=== PATIENT | male | born 1955 | race Caucasian/White ===

== ENCOUNTER → 2020-11-13 10:55 | Outpatient (CLI) | payer MEDICARE, MEDICAID, SELFPAY ==
[2020-11-13 09:34] VITALS: BMI 18.0
--- NOTE | 2020-11-13 11:02 | MRI_ITS ---
STUDY: MRI BRAIN WITH AND WITHOUT CONTRAST REASON FOR EXAM: Male, 65 years old. Glioblastoma s/p resection, eval and planning RT TECHNIQUE: Standardized multiplanar fat and water weighted pulse sequences were obtained. IV DOTAREM 10ML was administered for the contrast portion of the examination. COMPARISON: 21 Oct 2020 FINDINGS: There is expected appearance of right temporal resection cavity and overlying craniotomy. Cavity is filled with CSF-like fluid and has minor thin reactive rim enhancement. There is 5 mm right hemispheric subdural effusions without mass effect. Previously seen vasogenic edema has resolved. Residual nonenhancing tumor involves the uncus, hippocampus and medial aspect of the temporal lobe. There is abnormal signal in the lower aspect of the right lentiform nucleus, without enhancement and possibly reactive and/or residual tumor. There is minor 3 mm right to left midline shift. There is no hydrocephalus or herniation. There is posttraumatic inseparable malacia in the left frontal, right frontal, left temporal and occipital lobes. MRI/Brain W/WO Contrast IMPRESSION: 1. Expected appearance of right temporal subtotal resection and surgical cavity. Electronically Signed: Marito Loving MD at 20:49 EDT Tel , Service support ,
[2020-11-13 12:05] LABS: CREATININE FINGERSTICK 1.1 mg/dL (0.70-1.30); EGFR FINGERSTICK > 60.0000 mL/min (>60)
== END ==
PROVIDERS: PCP Internal Medicine; Referring Provider Student in an Organized Health Care Education/Training Program; Visit Provider Student in an Organized Health Care Education/Training Program
DX: Z01.812 Encounter for preprocedural laboratory examination (principal); C71.2 Malignant neoplasm of temporal lobe
CPT/HCPCS: 36415; 70553; 80053; 85025; A9575

== ENCOUNTER → 2020-11-20 15:51 | Outpatient (CLI) | payer MEDICARE, MEDICAID, SELFPAY ==
[2020-11-20 15:02] VITALS: BMI 17.7
--- NOTE | 2020-11-20 15:54 | VDLE_ITS ---
Reason For Study: Pain RIGHT LEFT GSV is normal. CFV is compressible, spontaneous, phasic, CFV is compressible, spontaneous, phasic, competent, and demonstrates normal competent and demonstrates normal augmentation. augmentation. FV is compressible, spontaneous, phasic, competent and demonstrates normal augmentation. POP V is compressible, spontaneous, phasic, competent and demonstrates normal augmentation. T/P Trunk is compressible. PTV is compressible. RT PerV is compressible. Procedure This is a venous duplex using B-mode, color flow and spectral Doppler. Exam performed in department. A preliminary report was called and/or faxed to [facility]. VL/Venous Duplex US, Unilateral Interpretation Summary There is no evidence of right lower extremity deep vein thrombosis. Right great saphenous vein appears patent and compressible segmentally. Normal flow patterns left common f emoral vein Ordering Physician: Vi Bellamy Referring Physician: Jerod Roberson Performed By: Rosalina Sanchez RVT
--- NOTE | 2020-11-20 16:32 | MRI_ITS ---
STUDY: MRI ABDOMEN WITH AND WITHOUT CONTRAST REASON FOR EXAM: Male, 65 years old. EVALUATE PANCREAS HYPODENSITY SEEN ON CT FROM [facility] -- ATTN: PANCREAS TECHNIQUE: Standardized fat and water weighted pulse sequences were obtained in all 3 orthogonal planes post contrast administration. dotarem 10 ml iv was administered for the contrast portion of the examination. COMPARISON: CT 10/18/2020. FINDINGS: The visualized lung bases are unremarkable. The visualized portions of the heart are within normal limits. Normal liver. Normal gallbladder and extrahepatic biliary system. Normal spleen. 1.2 cm T1 hypointense/T2 hyperintense lesion in the head of the pancreas (image 39, series 1302). This lesion does not demonstrate enhancement nor does it drop signal on out of phase imaging. No dilatation of the main pancreatic duct. Normal bilateral adrenal glands. Normal right kidney. Normal left kidney. Normal visualized stomach. Normal small intestine. Normal colon. There is diffuse atherosclerotic calcification of the abdominal aorta, without a demonstrated aneurysm. Normal inferior vena cava. Normal retroperitoneum. Normal abdominal wall. Normal osseous structures. MRI/MRI Abd WITH and W/O Contrast IMPRESSION: 1.2 cm non-enhancing T2 hyperintense lesion in the head of the pancreas without main pancreatic ductal dilation. This is suspicious for a cystic neoplasm such as side branch intraductal papillary mucinous neoplasm (IPMN). Recommend follow-up MRCP in two years to document stability. Electronically Signed: Tony Valenzuela MD at 19:28 EDT Tel , Service support ,
== END ==
PROVIDERS: PCP Internal Medicine; Referring Provider Nurse Practitioner Family; Visit Provider Nurse Practitioner Family
DX: M79.604 Pain in right leg (principal); C71.2 Malignant neoplasm of temporal lobe
CPT/HCPCS: 74183; 77300; 77301; 77338; 93971; A9575; A4216

== ENCOUNTER 2020-12-01 13:53 | Emergency (ER) | payer MEDICARE, MEDICAID, SELFPAY ==
[2020-11-20 15:02] VITALS: BMI 17.7
--- NOTE | 2020-12-01 13:56 | RAD_ITS ---
EXAM: XR CHEST, 1 VIEW CLINICAL INDICATION: Neuro deficit, acute, stroke suspected TECHNIQUE: Frontal view of the chest. This report was created using [employer] report generation technology. COMPARISON: None. FINDINGS: LUNGS AND PLEURAL SPACES: Suspicious ill-defined interstitial infiltrates in the lower lobes. HRCT chest will be helpful if interstitial pneumonitis is a clinical consideration. No pneumothorax. No effusion. HEART: Unremarkable. Cardiac silhouette not enlarged. MEDIASTINUM: Central airways and mediastinal contour are unremarkable. BONES/JOINTS: Unremarkable. SOFT TISSUES: Unremarkable. TUBES, LINES AND DEVICES: ET tube tip is 4 cm above the maynor. OG tube tip and sidehole are inside the left gastric cardia. RAD/Chest 1 View IMPRESSION: Suspicious interstitial infiltrates in the lower lobes. HRCT chest will help clarify if interstitial pneumonitis is a clinical consideration. Electronically Signed: Sampson Avalos MD at 15:41 EDT , Service support ,
--- NOTE | 2020-12-01 13:56 | CT_ITS ---
We are attempting to reach an attending provider to discuss findings. An addendum with communication details will be sent when the communication is complete. EXAM: CT HEAD WITHOUT INTRAVENOUS CONTRAST CLINICAL INDICATION: Neuro deficit, acute, stroke suspected TECHNIQUE: Multiple axial images were obtained of the head without intravenous contrast. This CT exam was performed using one or more of the following dose reduction techniques: automated exposure control, adjustment of the mA and/or kV according to patient size, and/or use of iterative reconstruction technique. This report was created using [employer] report [employer] technology. COMPARISON: CT head without contrast 10/24/2020. FINDINGS: BRAIN AND EXTRA-AXIAL SPACES: Clearing of postoperative pneumocephalus and postoperative fluid overlying the right cerebral hemisphere. Large surgical defect in the right temporal lobe is unchanged. Cystic encephalomalacia with atrophy in the left anterior temporal pole, left frontal lobe and left posterior parieto-occipital lobe are unchanged. No intra- or extra-axial hemorrhage. No evidence of acute infarct. No intracranial mass or mass effect. There is preservation of the soliz/white matter interface. Posterior fossa structures are unremarkable. Basal cisterns are patent. BONES/JOINTS: Right craniotomy defect is unchanged. No discrete lytic or blastic abnormalities. SINUSES: Unremarkable as visualized. Clear. MASTOID AIR CELLS: Unremarkable. Clear. ORBITS: Visualized globes, extraocular muscles, optic nerves and retrobulbar fat appear unremarkable. CT/STROKE Brain/Head without Cont IMPRESSION: 1. No CT evidence of intracranial bleeding, acute ischemic infarct or acute intracranial abnormality at this time. 2. Interval resolution of postoperative pneumocephalus and postoperative fluid overlying the right cerebral hemisphere when compared to 10/24/2020. 3. 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 Electronically Signed: Sampson Avalos MD at 14:14 EDT , Service support ,
--- NOTE | 2020-12-01 13:56 | EKG12_ITS ---
Test Reason : STROKE Blood Pressure : / mmHG Vent. Rate : 069 BPM Atrial Rate : 069 BPM P-R Int : 144 ms QRS Dur : 076 ms QT Int : 412 ms P-R-T Axes : 088 031 051 degrees QTc Int : 441 ms Normal sinus rhythm Normal ECG Confirmed by JAIME BELLO, LA ([id number]), book editor YEVGENIY MCKEON ([id number]) on 12/03/2020 9:02:29 AM Referred By: Confirmed By:LA SANDOVAL MD
[2020-12-01] MEDS: LORazepam 2 MG/ML Syringe 1 MG IV ×4 (13:58→14:49)
[2020-12-01 14:03] VITALS: BMI 18.2
--- NOTE | 2020-12-01 14:03 | ED.VIS.STROK ---
HPI History of Present Illness Chief Complaint: Neuro S/Sx Informant: family and EMS Narrative Narrative: 65-year-old male with a history of stage IV glioblastoma with right temporal craniotomy resection in October 23, 2020 presents with left-sided weakness slurred speech and twitching. This was noticed by his daughter this morning. Currently the patient is aphasic. He is currently maintained on Keppra for seizures. He has been seeing [facility] neurology. The family called up and spoke with nursing directly. She states at 11:00 this morning he was fine but then she found him incontinent with decreased mental status, slurred speech, and twitching of face and arm. Per Oncology Notes: Patient is a 65-year-old male who since June 2020 had repeated seizures (initially thought to be falls, loss of consciousness, however his long-term girlfriend reported that there were occasions when he vomited, appeared to be choking, shaking, incontinent of urine and unresponsive for only seconds). His girlfriend also reported failing memory and change in behavior in the past several months. He has a history of excessive alcohol consumption, cocaine and marijuana use. October 17, 2020 he was seen in outside emergency room in [place] following 1 of these episodes and a CT scan of the head showed an enhancing lesion in the right hemisphere with significant edema and right to left shift and was transferred to [facility] where October 18, 2020 MRI of the head confirmed a large right temporal lobe mass with surrounding edema and multiple areas of remote posttraumatic encephalomalacia. CT chest October 18, 2020 showed patchy consolidation in the left lower lobe concerning for bronchopneumonia potentially aspiration, an underlying mass was not suspected and a follow-up was advised. He was treated with high-dose steroids, antiseizure medication. October 23, 2020 underwent right temporal craniotomy with resection of brain tumor by Dr. Jolly Pathology showed glioblastoma, grade 4, IDH 1 R132H wild-type, ATRX intact. October 24, 2020: CT head without contrast postoperative showed postoperative changes with decrease in subdural collection contiguous with the resection cavity and decreased mass-effect on the right lateral ventricle with minimal improvement in the degree of left midline shift. PFSH PFSH Medical History Alcohol use disorder, severe, dependence CAD (coronary artery disease) Cocaine use Essential hypertension, benign FH: CVA (cerebrovascular accident) Hepatitis C History of multiple strokes Marijuana use Nodule of skin of head Pain of right lower extremity Pneumonia PVD (peripheral vascular disease) Seizure disorder Smoker Home Medications atorvastatin 80 mg tablet 80 mg PO DAILY 11/11/20 [History Last Taken Unknown] calcium carbonate 500 mg (1,250 mg)-vitamin D3 200 unit tablet 1 tab PO TID 11/11/20 [History Last Taken Unknown] carvedilol 12.5 mg tablet 12.5 mg PO Q12H 11/11/20 [History Last Taken Unknown] folic acid 1 mg tablet 1 mg PO DAILY 11/11/20 [History Last Taken Unknown] isosorbide mononitrate 30 mg tablet,extended release 24 hr 30 mg PO DAILY 11/11/20 [History Last Taken Unknown] multivitamin with minerals 1 cap PO DAILY 11/11/20 [History Last Taken Unknown] naltrexone 50 mg tablet 50 mg PO DAILY 11/11/20 [History Last Taken Unknown] levetiracetam 500 mg/5 mL (5 mL) oral solution 500 mg PO ONCE 11/13/20 [History Last Taken Unknown] aspirin 81 mg tablet,delayed release 81 mg PO DAILY 11/14/20 [History Last Taken Unknown] levetiracetam 500 mg tablet 500 mg PO BID 11/14/20 [History Last Taken Unknown] lisinopril 40 mg tablet 20 mg PO DAILY tab 11/14/20 [History Last Taken Unknown] oxycodone 5 mg capsule 5 mg PO Q4H PRN 11/14/20 [History Last Taken Unknown] Allergy/AdvReac Type Severity Reaction Status Date / Time ketorolac AdvReac Nausea/Vom/ Verified 11/20/20 14:56 Diarrhea tromethamine AdvReac Nausea/Vom/ Verified 11/20/20 14:56 Diarrhea Family History Sister Cancer Father Heart disease Brother Lymphoma Surgical History History of craniotomy (~10/2020) Social History household members: other Smoking Status: Current every day smoker tobacco type: cigarettes second hand exposure: Yes alcohol intake: current details: occasionally beer substance use type: former substance user, marijuana and crack/cocaine seatbelt use: always do you feel safe at home: Yes ROS ROS ED Review of Systems ROS Unobtainable: due to mental status EXAM Physical Exam Const Vital Signs: 12/01/20 14:05 12/01/20 14:12 12/01/20 14:44 Temperature 98.2 F 98.2 F Temperature Source Temporal Temporal Pulse Rate 69 73 Respiratory Rate 29 H 18 Blood Pressure 150/98 H Blood Pressure Mean 115 Pulse Ox 98 97 Oxygen Delivery Method Room Air Room Air Room Air 12/01/20 14:52 12/01/20 15:15 Temperature Temperature Source Pulse Rate 79 71 Respiratory Rate 24 H 18 Blood Pressure 133/90 H Blood Pressure Mean 104 Pulse Ox 96 100 Oxygen Delivery Method Room Air Room Air Positive well nourished and well developed General Appearance ED: well developed HEENT Reports normocephalic, head/scalp atraumatic and moist mucous membranes Eyes PERRL and EOMs intact bilaterally Neck no lymphadenopathy, supple and no JVD Resp normal respiratory effort and clear to auscultation bilaterally Cardio regular rate, regular rhythm and no murmurs GI normal to inspection, nondistended, normoactive bowel sounds and non-tender Palpation: soft Back/Spine no CVA tenderness and normal ROM Extremity normal to inspection General Extremety ED: Negative for edema General Extremity: Negative for edema Neuro Neuro Narrative: Patient has rhythmic jerking of his left face left hand and shoulder. He is nonverbal. Sensorium / Orientation: alert Psych mental status grossly normal Mood & Affect: Negative for depressed or tearful Skin no rashes or lesions noted and no wounds STROKE Vital Signs/Narrative: Vital Signs Temp Pulse Resp BP Pulse Ox 12/01/20 15:15 71 18 100 12/01/20 14:52 79 24 H 133/90 H 96 12/01/20 14:44 98.2 F 73 18 97 12/01/20 14:05 98.2 F 69 29 H 150/98 H 98 MDM MDM MDM Narrative Medical decision making narrative: Patient was taken from EMS cot to CT scanner. CT does not reveal any hemorrhage. He received a milligram of Ativan. Unfortunately his partial seizures did not stop even after 4 Ativan. He was loaded with 20 mg/kg of Keppra. Patient had depressed mental status and began drooling on himself. He was not redirectable. As he should be transferred to [facility] I believe the safest thing to do would be to protect his airway by intubating him. He underwent RSI using etomidate and succinylcholine. An 8-0 endotracheal tube was secured at 24 cm on the first attempt without any difficulty. Post intubation chest x-ray was obtained. My interpretation of that shows adequate position of the OG and the endotracheal tube. Patient was placed on Precedex as he has a history of alcoholism and I did not feel that propofol would be a good choice. [facility] has been called to transport the patient. Lab Data Attestation: I reviewed the patient's lab results. Labs: Laboratory Results - last 24 hr 12/01/20 12/01/20 12/01/20 14:03 14:03 14:03 WBC 7.3 RBC 3.46 L Hgb 12.3 L Hct 36.6 L MCV 105.8 H MCH 35.5 H MCHC 33.6 RDW Std Deviation 58.5 H RDW Coeff of Serena 15.0 H Plt Count 323 MPV 10.1 Immature Gran % (Auto) 5.000 H Neut % (Auto) 57.3 Lymph % (Auto) 24.0 Bath % (Auto) 11.7 H Eos % (Auto) 1.0 Baso % (Auto) 1.0 Absolute Neuts (auto) 4.2 Absolute Lymphs (auto) 1.76 Nucleated RBC % 0 PT 12.0 INR 0.9 APTT 24.6 Sodium 141 Potassium 4.9 Chloride 110 H Carbon Dioxide 27.0 Anion Gap 4 L BUN 13 Creatinine 0.74 Estim Creat Clear Calc 81.08 Est GFR (MDRD) Af Amer 137 Est GFR (MDRD) Non-Af 113 BUN/Creatinine Ratio 17.6 Glucose 99 Calcium 9.2 Troponin I High Sens 11.4 Radiography Diagnostic Testing: Radiology Impression Brain CT 12/01/20 13:56 IMPRESSION: 1. No CT evidence of intracranial bleeding, acute ischemic infarct or acute intracranial abnormality at this time. 2. Interval resolution of postoperative pneumocephalus and postoperative fluid overlying the right cerebral hemisphere when compared to 10/24/2020. 3. 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 Electronically Signed: Sampson Avalos MD at 14:14 EDT , Service support , ADDENDUM: 12/01/20 1427 IMPRESSION: 1. No CT evidence of intracranial bleeding, acute ischemic infarct or acute intracranial abnormality at this time. 2. Interval resolution of postoperative pneumocephalus and postoperative fluid overlying the right cerebral hemisphere when compared to 10/24/2020. 3. 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 N.B. : The above Results were Read Back by Sampson Avalos MD to Shabbir James MD, and understanding confirmed on 12/01/2020 14:20:10 (ET). Electronically Signed: Sampson Avalos MD at 14:14 EDT , Service support , EKG Initial EKG: Attestation: I personally reviewed and interpreted this EKG as follows: Comments: EKG demonstrates a normal sinus rhythm at a rate of 69. Stroke Documentation Questions Stroke Team Activated: Yes Reviewed Inclusion/Exclusion criteria: Yes Was Patient considered for Endovascular Intervention?: No IV Alteplase (t-PA) Administered: No No contraindications for IV Alteplase (t-PA) administration.: No Alteplase (t-PA) risks, benefits, alternative discussed: No Critical Care Time Critical care time (excluding procedures): 30-74 minutes (35 min), Including time spent:, Discussing w/Patient &/or Family/Restorative Coordinator, Discussing w/Consultants, Arranging Admission or Transfer and Performing Direct Patient Care at Bedside Discharge Plan Triage Chief Complaint: Neuro S/Sx ED Provider: Shabbir James Dx/Rx/DC Orders Clinical Impression: Glioblastoma multiforme of temporal lobe, Status epilepticus, Respiratory failure, Required emergent intubation Prescriptions: No Action atorvastatin 80 mg tablet 80 mg PO DAILY RF: 0 carvedilol 12.5 mg tablet 12.5 mg PO Q12H RF: 0 calcium carbonate-vitamin D3 500 mg(1,250mg) -200 unit tablet 1 tab PO TID RF: 0 folic acid 1 mg tablet 1 mg PO DAILY RF: 0 isosorbide mononitrate 30 mg tablet extended release 24 hr 30 mg PO DAILY RF: 0 multivitamin with minerals Capsule 1 cap PO DAILY RF: 0 naltrexone 50 mg tablet 50 mg PO DAILY RF: 0 levetiracetam 500 mg/5 mL (5 mL) solution 500 mg PO ONCE RF: 0 lisinopril 40 mg tablet 20 mg PO DAILY RF: 0 oxycodone 5 mg capsule 5 mg PO Q4H PRNRF: 0 aspirin 81 mg tablet,delayed release (DR/EC) 81 mg PO DAILY RF: 0 levetiracetam 500 mg tablet 500 mg PO BID RF: 0 Primary Care Provider: Jerod Oneil Referrals: Jerod Oneil MD [Primary Care Provider] - Disposition Disposition: Acute Care Hospital Discharge Location: [facility]
[2020-12-01 14:05] VITALS: BP 150/98; PULSE 69; RESP 29; TEMP 36.8; O2SAT 98
[2020-12-01 14:19] LABS: Absolute Lymphocyte Count 1.76 X10^3/uL (0.83-4.51); Absolute Neutrophil Count 4.2 X10^3/uL (2.0-7.7); Basophil# 0.07 X10^3/uL; Eosinophil# 0.07 X10^3/uL; Hematocrit 36.6 % (40-54); Hemoglobin 12.3 g/dL (13.0-16.5); Lymphocyte # 1.76 X10^3/ul (0.83-4.51); Mean Corp Hgb Conc 33.6 g/dL (32-36); Mean Corpuscular Hgb 35.5 pg (27.0-32.0); Mean Corpuscular Volume 105.8 fL (80-94); Mean Platelet Vol. 10.1 fl (6.2-12.0); Monocyte# 0.86 X10^3/uL; Monocyte% 11.7 % (0-10); NRBC Flagged by Analyzer 0 % (0-5); Neutrophil % 57.3 % (47-70); Platelet Count 323 K/mm3 (150-450); RBC Distribution Width SD 58.5 fl (35.1-43.9); Red Blood Count 3.46 M/mm3 (4.6-6.2); White Blood Count 7.3 K/mm3 (4.4-11.0)
[2020-12-01 14:24] LABS: International Normalized Ratio 0.9
[2020-12-01 14:25] LABS: Partial Thromboplast Time 24.6 Seconds (24.1-36.2)
[2020-12-01] MEDS: levETIRAcetam IV 1,000 MG/100 ML BAG 400 MG IV (14:26)
[2020-12-01 14:34] LABS: Anion Gap 4 (5-15); BUN 13 mg/dL (7-18); BUN/Creat Ratio 17.6 RATIO (10-20); Calcium,Total 9.2 mg/dL (8.5-10.1); Chloride 110 mmol/L (98-107); Creatinine, Serum 0.74 mg/dL (0.70-1.30); EST Glomerular Filtration Rate 113 mL/min (>60); Est Glom Filt Rate - Afr Amer 137 mL/min (>60); Estimated Creatinine Clearance 81.08 ml/min; Glucose 99 mg/dL (74-106); Potassium 4.9 mmol/L (3.5-5.1); Sodium Level 141 mmol/L (136-145); Troponin-I HS 11.4 pg/mL (3.0-78.5)
[2020-12-01 14:44] VITALS: PULSE 73; RESP 18; TEMP 36.8; O2SAT 97; BMI 18.2
--- NOTE | 2020-12-01 14:44 | ED.RN ---
[facility] stroke cancelled d/t patient having seizures
[2020-12-01 14:52] VITALS: BP 133/90; PULSE 79; RESP 24; O2SAT 96
[2020-12-01 14:58] VITALS: PULSE 73; RESP 14; RESP 22; O2SAT 100
--- NOTE | 2020-12-01 15:01 | NURSING ---
PATIENT GOING TO [facility]
--- NOTE | 2020-12-01 15:01 | NURSING ---
1449 CALLED [facility], CHECKING FOR AVAILABLE [facility]
--- NOTE | 2020-12-01 15:02 | NURSING ---
NEURO AT [facility] ROOM 1049 NURSE TO NURSE [phone]
--- NOTE | 2020-12-01 15:11 | NURSING ---
[facility], [facility], CALLED. WORKING ON AIR TRANSPORT
[2020-12-01] MEDS: Midazolam 5 MG/ML Syringe IV (15:14)
[2020-12-01 15:15] VITALS: PULSE 71; RESP 18; O2SAT 100
--- NOTE | 2020-12-01 15:16 | NURSING ---
[facility], ETA IS 20 TO 25
[2020-12-01] MEDS: Rocuronium Bromide 50 MG/5 ML Vial IV (15:21)
--- NOTE | 2020-12-01 15:40 | ED.RN ---
1519 dr. munoz in room to assess patient awake and fighting sedation. orders to increase precedex to 0.8mcg/kg/hr
[2020-12-01 16:17] VITALS: BP 161/101; PULSE 74
== END 2020-12-01 16:10 | disposition short-term general hospital (02) ==
PROVIDERS: Emergency Provider Emergency Medicine; PCP Internal Medicine
DX: C71.2 Malignant neoplasm of temporal lobe (principal); G40.901 Epilepsy, unspecified, not intractable, with status epilepticus; I10 Essential (primary) hypertension; I25.10 Atherosclerotic heart disease of native coronary artery without angina pectoris; F17.210 Nicotine dependence, cigarettes, uncomplicated; J96.90 Respiratory failure, unspecified, unspecified whether with hypoxia or hypercapnia; Z79.1 Long term (current) use of non-steroidal anti-inflammatories (NSAID); Z79.82 Long term (current) use of aspirin; Z82.49 Family history of ischemic heart disease and other diseases of the circulatory system
CPT/HCPCS: 31500; 31720; 70450; 71045; 80048; 84484; 85025; 85610; 85730; 93005; 94002; 99251; 99285; J7030; A4216; G0463

== ENCOUNTER 2021-01-16 16:09 | Inpatient (IN) | payer MEDICARE, MEDICAID, SELFPAY ==
[2021-01-14 13:58] VITALS: BMI 15.0
[2021-01-16] VITALS (9 sets, daily range): BP systolic 82–111; BP diastolic 39–94; PULSE 71–86; RESP 14–20; TEMP 35.3–36.7; O2SAT 90–97; BMI 15.8; BMI 16.2
--- NOTE | 2021-01-16 16:55 | EKG12_ITS ---
Test Reason : Blood Pressure : / mmHG Vent. Rate : 085 BPM Atrial Rate : 085 BPM P-R Int : 138 ms QRS Dur : 074 ms QT Int : 404 ms P-R-T Axes : 072 074 073 degrees QTc Int : 480 ms Normal sinus rhythm Prolonged QT Abnormal ECG Confirmed by MICKY BELLO, CHRIS ([id number]), web content editor YEVGENIY MCKEON ([id number]) on 01/21/2021 8:49:40 AM Referred By: Confirmed By:CHRIS WEEKS MD
--- NOTE | 2021-01-16 16:57 | EDS_ITS ---
HPI History of Present Illness Chief Complaint: Weakness Narrative Narrative: 65-year-old male presenting for evaluation as he is currently not taking his antiepileptic medications. He has missed radiation treatments for stage IV brain cancer. Patient is unable to provide much history. This is all reported to nursing notes and the nursing staff. Patient has no specific complaints. Initially he stated that where he is at the nurses are busy. He denied that he was not taking his medications. After this he did not answer any further questions. PFSH PFSH Medical History Alcohol dependence Alcohol use disorder, severe, dependence CAD (coronary artery disease) Chronic narcotic dependence Cocaine use Essential hypertension, benign FH: CVA (cerebrovascular accident) Hepatitis C History of multiple strokes Macrocytosis Marijuana use Nodule of skin of head Pain of right lower extremity Pneumonia Poor compliance with medication PVD (peripheral vascular disease) Seizure disorder Smoker Home Medications atorvastatin 80 mg tablet 80 mg PO DAILY 11/11/20 [History Last Taken 01/15/21] calcium carbonate 500 mg (1,250 mg)-vitamin D3 200 unit tablet 1 tab PO TID 0 11/11/20 [History Last Taken 01/15/21] carvedilol 12.5 mg tablet 12.5 mg PO Q12H 11/11/20 [History Last Taken 01/15/21] folic acid 1 mg tablet 1 mg PO DAILY 11/11/20 [History Last Taken 01/15/21] isosorbide mononitrate 30 mg tablet,extended release 24 hr 30 mg PO DAILY 11/11/20 [History Last Taken 01/15/21] multivitamin with minerals 1 cap PO DAILY 11/11/20 [History Last Taken 01/15/21] aspirin 81 mg tablet,delayed release 81 mg PO DAILY 11/14/20 [History Last Taken 01/15/21] lisinopril 40 mg tablet 40 mg PO DAILY tab 11/14/20 [History Last Taken 01/15/21] ondansetron 4 mg disintegrating tablet 4 mg PO Q8H PRN #30 tab 12/10/20 [Rx Last Taken Unknown] levetiracetam 750 mg PO BID 01/16/21 [History Last Taken 01/15/21] pantoprazole 40 mg PO BID 01/16/21 [History Last Taken 01/15/21] spironolactone 25 mg PO DAILY 01/16/21 [History Last Taken 01/15/21] Allergy/AdvReac Type Severity Reaction Status Date / Time ketorolac AdvReac Nausea/Vom/ Verified 01/16/21 16:18 Diarrhea tromethamine AdvReac Nausea/Vom/ Verified 01/16/21 16:18 Diarrhea Family History Sister Cancer Father Heart disease Brother Lymphoma Surgical History History of craniotomy (~10/2020) Social History household members: other Smoking Status: Current every day smoker tobacco type: cigarettes second hand exposure: Yes alcohol intake: current details: occasionally beer substance use type: former substance user, marijuana and crack/cocaine seatbelt use: always do you feel safe at home: Yes ROS ROS ED Review of Systems ROS Unobtainable: due to mental condition and due to mental status EXAM Physical Exam Const Vital Signs: 01/16/21 16:14 01/16/21 16:44 01/16/21 18:16 Temperature 97.5 F L Temperature Source Oral Pulse Rate 86 76 Respiratory Rate 14 17 Respiratory Effort Normal Non-Labored Respiratory Pattern Normal Blood Pressure 111/94 H 98/72 Blood Pressure Mean 99 80 Pulse Ox 94 94 Oxygen Delivery Method Room Air Room Air 01/16/21 20:00 01/16/21 20:38 Temperature 98.1 F Temperature Source Oral Pulse Rate 76 80 Respiratory Rate 20 H 18 Respiratory Effort Respiratory Pattern Blood Pressure 100/76 100/76 Blood Pressure Mean 84 84 Pulse Ox 95 94 Oxygen Delivery Method Room Air Room Air Positive cachectic General Appearance ED: cachectic and NAD Nutritional Appearance: cachectic HEENT Reports moist mucous membranes Negative for trauma Eyes PERRL and EOMs intact bilaterally General Eye ED: Negative for pale conjunctiva or scleral icterus Neck no lymphadenopathy and supple Resp normal respiratory effort and clear to auscultation bilaterally Cardio regular rate and regular rhythm GI normal to inspection, nondistended, normoactive bowel sounds Neuro CN's II-XII intact bilaterally Sensorium / Orientation: alert and orientation impaired Psych Appearance: other Appears confused Skin no rashes or lesions noted and no wounds MDM MDM MDM Narrative Medical decision making narrative: Ental status and concern for dehydration. Patient's vital signs were stable on arrival and he is afebrile. Patient has history of glioblastoma and has been missing his treatments. There is no reported seizure activity. Patient is not able to give much history on examination. Patient had EKG performed on arrival which on my interpretation shows a sinus rhythm with a ventricular rate of 85 bpm, CO interval 138 ms, QRS duration 74 ms, QTC 480. There are no signs of ischemia. CT brain on radiologist interpretation shows no acute intracranial process. Chest x-ray on my interpretation shows no acute cardiopulmonary process and the radiologist does agree. CBC shows leukocytosis of 14.5, hemoglobin 15.9, hematocrit 47.3, platelets 361 with slight left shift. Renal function is abnormalPrevious e creatinine was 0.76 and today it is 7.86. His GFR is 7 and previously was 129. I did obtain a lactic acid out of concern patient may have had a seizure however this is only 2.0 does not believe patient has had a seizure. CK is only 209. High-sensitivity troponin is negative. Urinalysis is positive for infection he was given Rocephin and urine culture was sent. Patient was given 2 L of IV fluids initially. On reevaluation patient's blood pressure was 90/73. He was given an additional 1 L of fluids in the ED. Patient was given Keppra 750 IV as it is unknown when he had his last dose. Patient does not have any sirs criteria with exception of a leukocytosis of 14.5 and does not necessarily meet sepsis criteria. Patient was discussed with the hospitalist for admission. Impression: 1. Acute kidney injury 2. Leukocytosis 3. UTI Lab Data Attestation: I reviewed the patient's lab results. Labs: Laboratory Results - last 24 hr 01/16/21 01/16/21 01/16/21 17:15 17:15 17:15 WBC 14.5 H RBC 4.52 L Hgb 15.9 Hct 47.3 MCV 104.6 H MCH 35.2 H MCHC 33.6 RDW Std Deviation 51.8 H RDW Coeff of Serena 13.4 Plt Count 361 MPV 10.6 Immature Gran % (Auto) 0.500 Neut % (Auto) 84.4 H Lymph % (Auto) 7.3 L Wharton % (Auto) 7.0 Eos % (Auto) 0.5 Baso % (Auto) 0.3 Absolute Neuts (auto) 12.2 H Absolute Lymphs (auto) 1.05 Nucleated RBC % 0 Sodium 136 Potassium 4.9 Chloride 102 Carbon Dioxide 18.0 L Anion Gap 16 H BUN 80 H Creatinine 7.86 H* Estim Creat Clear Calc 6.10 Est GFR (MDRD) Af Amer 9 L Est GFR (MDRD) Non-Af 7 L BUN/Creatinine Ratio 10.2 Glucose 124 H Lactic Acid 2.0 Calcium 11.2 H Total Bilirubin 0.50 AST 60 H ALT 106 H Alkaline Phosphatase 81 Ammonia Total Creatine Kinase Troponin I High Sens 41.7 Total Protein 8.9 H Albumin 3.8 Globulin 5.1 H Albumin/Globulin Ratio 0.7 L Urine Color Urine Clarity Urine pH Ur Specific Uneeda Urine Protein Urine Glucose (UA) Urine Ketones Urine Occult Blood Urine Nitrite Urine Bilirubin Urine Urobilinogen Ur Leukocyte Esterase Urine RBC Urine WBC Ur Squamous Epith Cells Amorphous Sediment Urine Bacteria Urine Mucus 01/16/21 01/16/21 01/16/21 17:15 17:15 17:45 WBC RBC Hgb Hct MCV MCH MCHC RDW Std Deviation RDW Coeff of Serena Plt Count MPV Immature Gran % (Auto) Neut % (Auto) Lymph % (Auto) Wharton % (Auto) Eos % (Auto) Baso % (Auto) Absolute Neuts (auto) Absolute Lymphs (auto) Nucleated RBC % Sodium Potassium Chloride Carbon Dioxide Anion Gap BUN Creatinine Estim Creat Clear Calc Est GFR (MDRD) Af Amer Est GFR (MDRD) Non-Af BUN/Creatinine Ratio Glucose Lactic Acid Calcium Total Bilirubin AST ALT Alkaline Phosphatase Ammonia < 10.0 L Total Creatine Kinase 209 Troponin I High Sens Total Protein Albumin Globulin Albumin/Globulin Ratio Urine Color Yellow Urine Clarity Sl. Cloudy Urine pH 5.0 Ur Specific Uneeda 1.025 Urine Protein 30 H Urine Glucose (UA) 50 H Urine Ketones 5 H Urine Occult Blood 50 H Urine Nitrite Positive H Urine Bilirubin 1 H Urine Urobilinogen Normal Ur Leukocyte Esterase 100 H Urine RBC 0-5 SEEN Urine WBC 5-10 SEEN Ur Squamous Epith Cells 0-5 SEEN Amorphous Sediment 2+ URATE Urine Bacteria RARE Urine Mucus 0 SEEN Radiography Diagnostic Testing: Radiology Impression Brain CT 01/16/21 17:25 IMPRESSION: Chronic involutional changes without evidence of acute intracranial or calvarial abnormality. There is no major interval change. Electronically Signed: Ryan Pitt DO at 17:48 EDT Tel [phone], Service support , Chest X-Ray 01/16/21 17:25 IMPRESSION: No acute cardiopulmonary disease. Electronically Signed: Ryan Pitt DO at 17:49 EDT Tel [phone], Service support , Discharge Plan Disposition Disposition: Acute Care Hospital [facility] Discharge Date/Time: 01/16/21 21:32
[2021-01-16] MEDS: 0.9% Normal Saline 1,000 ML 1000 ML IV (17:07)
--- NOTE | 2021-01-16 17:25 | RAD_ITS ---
STUDY: X-RAY CHEST REASON FOR EXAM: Male, 65 years old. Analyzed weakness. TECHNIQUE: Single AP portable view of the chest. COMPARISON: 12/31/2020. FINDINGS: There is absence of the endotracheal tube and enteric tube seen on the prior study. The lungs are clear and expanded. There is no demonstrated pleural abnormality. Normal size heart. Normal mediastinum and rola. Normal visualized pulmonary arteries. There is atherosclerotic calcification of the aortic arch with tortuosity. Normal visualized thoracic spine. There is degenerative osteoarthritis of the bilateral shoulders. There is no demonstrated abnormality of the visualized soft tissue structures of the upper abdomen. RAD/Chest 1 View (Portable) IMPRESSION: No acute cardiopulmonary disease. Electronically Signed: Ryan Pitt DO at 17:49 EDT Tel [phone], Service support ,
--- NOTE | 2021-01-16 17:25 | CT_ITS ---
STUDY: CT BRAIN WITHOUT CONTRAST REASON FOR EXAM: Male, 65 years old. Altered mental status. RADIATION DOSAGE (If Supplied By Facility): CTDIvol = ( 44.99 ) mGy, DLP = ( 956.62 ) mGycm TECHNIQUE: Transaxial CT imaging of the brain was performed without administration of intravenous contrast material. Individualized dose optimization techniques were used for this CT. COMPARISON: 12/01/2020. FINDINGS: Normal soft tissue structures. Normal right temporal craniotomy. Normal size ventricles and extra-axial spaces for the patient''s age. There are areas of decreased attenuation within the white matter tracts of the supratentorial brain, consistent with microvascular disease changes. There is areas of decreased attenuation in the right temporal lobe underlying the craniotomy as well as in the left frontal region. Both are unchanged from prior study. Normal basal ganglia and thalami. Normal brainstem. Normal cerebellum. There is no intracranial hemorrhage. There are no findings of an acute ischemic infarction. Normal visualized paranasal sinuses. CT/Brain/Head without Contrast IMPRESSION: Chronic involutional changes without evidence of acute intracranial or calvarial abnormality. There is no major interval change. Electronically Signed: Ryan Pitt DO at 17:48 EDT Tel [phone], Service support ,
[2021-01-16 17:29] LABS: Absolute Lymphocyte Count 1.05 X10^3/uL (0.83-4.51); Absolute Neutrophil Count 12.2 X10^3/uL (2.0-7.7); Basophil# 0.04 X10^3/uL; Basophil% 0.3 % (0-1); Eosinophil# 0.07 X10^3/uL; Eosinophils% 0.5 % (0-5); Hematocrit 47.3 % (40-54); Hemoglobin 15.9 g/dL (13.0-16.5); Lymphocyte # 1.05 X10^3/ul (0.83-4.51); Lymphocyte % 7.3 % (19-41); Mean Corp Hgb Conc 33.6 g/dL (32-36); Mean Corpuscular Hgb 35.2 pg (27.0-32.0); Mean Corpuscular Volume 104.6 fL (80-94); Mean Platelet Vol. 10.6 fl (6.2-12.0); Monocyte# 1.01 X10^3/uL; NRBC Flagged by Analyzer 0 % (0-5); Neutrophil # 12.22 X10^3/uL (2.7-7.7); Neutrophil % 84.4 % (47-70); Platelet Count 361 K/mm3 (150-450); RBC Distribution Width CV 13.4 % (11.6-14.6); RBC Distribution Width SD 51.8 fl (35.1-43.9); Red Blood Count 4.52 M/mm3 (4.6-6.2); White Blood Count 14.5 K/mm3 (4.4-11.0)
[2021-01-16 17:51] LABS: Mucous, Urine 0 SEEN /hpf (<or=2+)
[2021-01-16 18:01] LABS: ALB/GLOB Ratio 0.7 RATIO (0.9-2.4); AST(SGOT) 60 U/L (15-37); Alanine Aminotransfer ALT/SGPT 106 U/L (16-61); Albumin, Serum 3.8 g/dL (3.2-5.0); Alkaline Phosphatase 81 U/L (45-117); Ammonia < 10.0 umol/L (11-32); Anion Gap 16 (5-15); BUN 80 mg/dL (7-18); BUN/Creat Ratio 10.2 RATIO (10-20); Calcium,Total 11.2 mg/dL (8.5-10.1); Chloride 102 mmol/L (98-107); Creatinine, Serum 7.86 mg/dL (0.70-1.30); EST Glomerular Filtration Rate 7 mL/min (>60); Est Glom Filt Rate - Afr Amer 9 mL/min (>60); Globulin 5.1 g/dL (2.2-4.2); Glucose 124 mg/dL (74-106); Potassium 4.9 mmol/L (3.5-5.1); Protein, Total 8.9 g/dL (6.4-8.2); Sodium Level 136 mmol/L (136-145); Troponin-I HS 41.7 pg/mL (3.0-78.5)
[2021-01-16 18:13] LABS: Color, Urine Yellow (Yellow); Glucose, Dipstick 50 mg/dl (Normal); Ketone-Dipstick 5 mg/dl (Negative); Leukocyte Esterase-Dipstick 100 /ul (Negative); Nitrite-Dipstick Positive (Negative); Occult Blood-Urine 50 /ul (Negative); Protein-Dipstick 30 mg/dl (Negative); Specific Gravity, Urine 1.025 (1.002-1.030); Urine Clarity Sl. Cloudy (Clear); Urine Urobilinogen Normal (Normal)
[2021-01-16 18:22] LABS: Urine Bilirubin Dipstick 1 mg/dL (Negative)
[2021-01-16 18:23] LABS: Amorphous Sediment 2+ URATE; Bacteria RARE /hpf (None Seen); Red Blood Cells-Urine 0-5 SEEN /hpf (0-5); Squamous Epithelial Cells - UA 0-5 SEEN /hpf (0-5); White Blood Cells 5-10 SEEN /hpf (0-5)
[2021-01-16] MEDS: 0.9% Normal Saline 1,000 ML 999 ML IV ×3 (18:36→22:54)
[2021-01-16 19:00] LABS: CPK Total, Creatine Kinase 209 U/L (39-308)
[2021-01-16] MEDS: Ceftriaxone 1 GM/50 ML BAG IV (19:20)
--- NOTE | 2021-01-16 20:59 | PCM.HP.STD ---
Documented by User: DANITZA Silvestre 01/16/21 21:34 HPI - General General Date of Admission: 01/16/21 Date of Service: 01/16/21 Chief Complaint: Confusion, dehydration HPI Narrative SHONDA MCCOY, is a 65 M who presents with confusion. Patient significant other states that patient has not really ate or drink anything in the past 5 days nor has he attended his radiology appointments. Patient is currently undergoing treatment for glioblastoma and follows with Dr Avitia and Dr. Winters. Patient is very confused during assessment, lying in bed unable to answer questions appropriately. PFSH Medical History Alcohol dependence Alcohol use disorder, severe, dependence CAD (coronary artery disease) Chronic narcotic dependence Cocaine use Essential hypertension, benign FH: CVA (cerebrovascular accident) Hepatitis C History of multiple strokes Macrocytosis Marijuana use Nodule of skin of head Pain of right lower extremity Pneumonia Poor compliance with medication PVD (peripheral vascular disease) Seizure disorder Smoker Home Medications atorvastatin 80 mg tablet 80 mg PO DAILY 11/11/20 [History Last Taken 01/15/21] calcium carbonate 500 mg (1,250 mg)-vitamin D3 200 unit tablet 1 tab PO TID 11/11/20 [History Last Taken 01/15/21] carvedilol 12.5 mg tablet 12.5 mg PO Q12H 11/11/20 [History Last Taken 01/15/21] folic acid 1 mg tablet 1 mg PO DAILY 11/11/20 [History Last Taken 01/15/21] isosorbide mononitrate 30 mg tablet,extended release 24 hr 30 mg PO DAILY 11/11/20 [History Last Taken 01/15/21] multivitamin with minerals 1 cap PO DAILY 11/11/20 [History Last Taken 01/15/21] aspirin 81 mg tablet,delayed release 81 mg PO DAILY 11/14/20 [History Last Taken 01/15/21] lisinopril 40 mg tablet 40 mg PO DAILY tab 11/14/20 [History Last Taken 01/15/21] ondansetron 4 mg disintegrating tablet 4 mg PO Q8H PRN #30 tab 12/10/20 [Rx Last Taken Unknown] levetiracetam 750 mg PO BID 01/16/21 [History Last Taken 01/15/21] pantoprazole 40 mg PO BID 01/16/21 [History Last Taken 01/15/21] spironolactone 25 mg PO DAILY 01/16/21 [History Last Taken 01/15/21] Allergy/AdvReac Type Severity Reaction Status Date / Time ketorolac AdvReac Nausea/Vom/ Verified 01/16/21 16:18 Diarrhea tromethamine AdvReac Nausea/Vom/ Verified 01/16/21 16:18 Diarrhea Family History Sister Cancer Father Heart disease Brother Lymphoma Surgical History History of craniotomy (~10/2020) Social History household members: other Smoking Status: Current every day smoker tobacco type: cigarettes second hand exposure: Yes alcohol intake: current details: occasionally beer substance use type: former substance user, marijuana and crack/cocaine seatbelt use: always do you feel safe at home: Yes ROS Review of Systems ROS Unobtainable: due to mental status Constitutional Constitutional: Reports anorexia, chills and fever(s) Vital Signs Vital Signs Vital Signs: 01/16/21 16:14 01/16/21 16:44 01/16/21 18:16 Temperature 97.5 F L Temperature Source Oral Pulse Rate 86 76 Respiratory Rate 14 17 Respiratory Effort Normal Non-Labored Respiratory Pattern Normal Blood Pressure 111/94 H 98/72 Blood Pressure Mean 99 80 Pulse Ox 94 94 Oxygen Delivery Method Room Air Room Air 01/16/21 20:00 01/16/21 20:38 Temperature 98.1 F Temperature Source Oral Pulse Rate 76 80 Respiratory Rate 20 H 18 Respiratory Effort Respiratory Pattern Blood Pressure 100/76 100/76 Blood Pressure Mean 84 84 Pulse Ox 95 94 Oxygen Delivery Method Room Air Room Air Weight Weight: 101 lb 6.602 oz Body Mass Index (BMI) 15.8 Physical Exam Const General Appearance: uncooperative and disheveled Orientation / Consciousness: confused Exam Limitations: altered mental status HEENT normocephalic and head/scalp atraumatic Eyes conjunctivae normal and no scleral icterus Neck supple and no JVD General: trachea midline Resp normal respiratory effort, normal air movement and clear to auscultation bilaterally Effort and Inspection: able to speak in complete sentences Cardio regular rate, regular rhythm, S1 normal heart sound, S2 normal heart sound and peripheral pulses 2+ throughout GI normal to inspection, nondistended, normoactive bowel sounds, soft to palpation and non-tender Extremity normal capillary refill and no clubbing, cyanosis or edema General Extremity: no tenderness to palpation of joints or extremities Skin General Skin Exam: no breakdown and turgor normal Lesions: no lesions Rashes: no rashes Neuro no focal motor deficits and no sensory deficits noted Speech: speech normal Motor Exam: general weakness Psych Attitude: uncooperative Activity / Motor Behavior: restless Mood & Affect: anxious Thought Process: disorganized and confused Results Lab / Micro Data Result Diagrams: 01/16/21 17:15 01/16/21 17:15 Labs: Laboratory Results - last 24 hr 01/16/21 17:15: WBC 14.5 H, RBC 4.52 L, Hgb 15.9, Hct 47.3, MCV 104.6 H, MCH 35.2 H, MCHC 33.6, RDW Std Deviation 51.8 H, RDW Coeff of Serena 13.4, Plt Count 361, MPV 10.6, Immature Gran % (Auto) 0.500, Neut % (Auto) 84.4 H, Lymph % (Auto) 7.3 L, Mitchell % (Auto) 7.0, Eos % (Auto) 0.5, Baso % (Auto) 0.3, Absolute Neuts (auto) 12.2 H, Absolute Lymphs (auto) 1.05, Nucleated RBC % 0 01/16/21 17:15: Sodium 136, Potassium 4.9, Chloride 102, Carbon Dioxide 18.0 L, Anion Gap 16 H, BUN 80 H, Creatinine 7.86 H*, Estim Creat Clear Calc 6.10, Est GFR (MDRD) Af Amer 9 L, Est GFR (MDRD) Non-Af 7 L, BUN/Creatinine Ratio 10.2, Glucose 124 H, Calcium 11.2 H, Total Bilirubin 0.50, AST 60 H, ALT 106 H, Alkaline Phosphatase 81, Troponin I High Sens 41.7, Total Protein 8.9 H, Albumin 3.8, Globulin 5.1 H, Albumin/Globulin Ratio 0.7 L 01/16/21 17:15: Lactic Acid 2.0 01/16/21 17:15: Ammonia < 10.0 L 01/16/21 17:15: Total Creatine Kinase 209 01/16/21 17:45: Urine Color Yellow, Urine Clarity Sl. Cloudy, Urine pH 5.0, Ur Specific [place] 1.025, Urine Protein 30 H, Urine Glucose (UA) 50 H, Urine Ketones 5 H, Urine Occult Blood 50 H, Urine Nitrite Positive H, Urine Bilirubin 1 H, Urine Urobilinogen Normal, Ur Leukocyte Esterase 100 H, Urine RBC 0-5 SEEN, Urine WBC 5-10 SEEN, Ur Squamous Epith Cells 0-5 SEEN, Amorphous Sediment 2+ URATE, Urine Bacteria RARE, Urine Mucus 0 SEEN Radiology Impression Brain CT 01/16/21 17:25 IMPRESSION: Chronic involutional changes without evidence of acute intracranial or calvarial abnormality. There is no major interval change. Electronically Signed: Ryan Pitt DO at 17:48 EDT Tel [phone], Service support , Chest X-Ray 01/16/21 17:25 IMPRESSION: No acute cardiopulmonary disease. Electronically Signed: Ryan Pitt DO at 17:49 EDT Tel [phone], Service support , Assessment & Plan Assessment/Plan (1) Urinary tract infection: QUALIFIERS: Hematuria presence: without hematuria Urinary tract infection type: site unspecified Qualified Code(s): N39.0 - Urinary tract infection, site not specified (2) Acute kidney injury: PLAN: 1. Urinary tract infection -Admit to ICU due to persistent hypotension for continuous cardiac and pulse ox monitoring -Patient received 2 L normal saline bolus in ER, will give 1 L bolus now, maintenance fluids normal saline 150 ml/hr -Patient received first dose ceftriaxone in ER, will continue -Urine culture pending -White blood cell count 14.5, CBC daily we will trend -Insert and maintain Sagastume catheter, strict intake and output -PT and OT to eval and treat -Case management consulted for discharge planning 2. Acute kidney injury -Creatinine elevated 7.86, BUN 80. Patient baseline appears to be 0.78 upon review of labs. -CMP daily, trend BUN and creatinine -Will hold antihypertensives at this time -Patient received 2 L normal saline bolus in ER, will give 1 L bolus now and maintenance fluids ordered normal saline 150 ml/hr 3. Hypotension -Will hold antihypertensives at this time -Vital signs per protocol -If patient does not respond to IV fluid resuscitation may consider use of vasopressors. 4. Seizures -Patient currently on Keppra, will continue. Per oncology note patient has not had seizures since initiated on Keppra therapy -Seizure precautions ordered 5. Glioblastoma -Patient is undergoing chemoradiation following craniotomy however significant other states patient has not went to his last few appointments. -Per patient significant other patient has not been eating or drinking well over the past 4 to 5 days -Will consult nutrition for assistance with increased po intake DVT prophylaxis-SCDs and subcu Lovenox This patient was seen by URBANO SilvestreC under the supervision of Dr. Hensley. Documented by User: Dr. Wero Hensley MD 01/16/21 21:52 HPI - General General Date of Admission: 01/16/21 Date of Service: 01/16/21 Chief Complaint: Altered mental status HPI Narrative This 65-year-old gentleman with history of glioblastoma multiforme status post right temporal craniotomy and tumor resection in October 2020, grade 4 as per note of oncologist Dr. Vera, 12/25/20 on adjuvant chemoradiation therapy, poorly compliant and missed couple of radiation treatment was brought into ER for generalized weakness, altered mental status. Patient himself cannot provide any history as he is disoriented to time, place, person and situation and confused. As per the nursing staff in the ER who called his significant other, patient has not been drinking or eating for last 4 days, confused, acting weird with abnormal behavior missing his radiation appointment and antiepileptic medication. In ED, initially his blood pressure was 119/94 but it dropped down to 98/72, still low 100/76 even after giving 2 L of normal saline bolus. No tachycardia, fever, tachypnea or hypoxia. Lactic acid normal. BUN/creatinine high 80/7.86. Glucose 124. CK normal. Urine was obtained with a straight catheterization showed protein 30, glucose 50, ketones 5, LE 100 and nitrite positive. WBC 5-10 cells, RBC 2-5 cells. PFSH Medical History Alcohol dependence Alcohol use disorder, severe, dependence CAD (coronary artery disease) Chronic narcotic dependence Cocaine use Essential hypertension, benign FH: CVA (cerebrovascular accident) Hepatitis C History of multiple strokes Macrocytosis Marijuana use Nodule of skin of head Pain of right lower extremity Pneumonia Poor compliance with medication PVD (peripheral vascular disease) Seizure disorder Smoker Home Medications atorvastatin 80 mg tablet 80 mg PO DAILY 11/11/20 [History Last Taken 01/15/21] calcium carbonate 500 mg (1,250 mg)-vitamin D3 200 unit tablet 1 tab PO TID 11/11/20 [History Last Taken 01/15/21] carvedilol 12.5 mg tablet 12.5 mg PO Q12H 11/11/20 [History Last Taken 01/15/21] folic acid 1 mg tablet 1 mg PO DAILY 11/11/20 [History Last Taken 01/15/21] isosorbide mononitrate 30 mg tablet,extended release 24 hr 30 mg PO DAILY 11/11/20 [History Last Taken 01/15/21] multivitamin with minerals 1 cap PO DAILY 11/11/20 [History Last Taken 01/15/21] aspirin 81 mg tablet,delayed release 81 mg PO DAILY 11/14/20 [History Last Taken 01/15/21] lisinopril 40 mg tablet 40 mg PO DAILY tab 11/14/20 [History Last Taken 01/15/21] ondansetron 4 mg disintegrating tablet 4 mg PO Q8H PRN #30 tab 12/10/20 [Rx Last Taken Unknown] levetiracetam 750 mg PO BID 01/16/21 [History Last Taken 01/15/21] pantoprazole 40 mg PO BID 01/16/21 [History Last Taken 01/15/21] spironolactone 25 mg PO DAILY 01/16/21 [History Last Taken 01/15/21] Allergy/AdvReac Type Severity Reaction Status Date / Time ketorolac AdvReac Nausea/Vom/ Verified 01/16/21 16:18 Diarrhea tromethamine AdvReac Nausea/Vom/ Verified 01/16/21 16:18 Diarrhea Family History Sister Cancer Father Heart disease Brother Lymphoma Surgical History History of craniotomy (~10/2020) Social History household members: other Smoking Status: Current every day smoker tobacco type: cigarettes second hand exposure: Yes alcohol intake: current details: occasionally beer substance use type: former substance user, marijuana and crack/cocaine seatbelt use: always do you feel safe at home: Yes Physical Exam Narrative General: Confused, disoriented. Awake, incoherent speech. HEENT: Atraumatic, PERRLA, EOMI, Normocephalic Oral: Oral mucosa dry. No Gingival or Mucosal Lesions/ Ulcerations Neck: Supple, No JVD, Negative Carotid Bruits Lungs: Air entry diminished in bilateral lung bases. No crepitation/rhonchi Cardiovascular: Regular rate, Regular Rhythm, Normal S1, Normal S2, No murmurs Abdomen: Bowel Sounds Present, Soft, Non Tender, Non-Distended : No renal angle tenderness. No suprapubic tenderness. Extremities: No edema, Capillary Refill Less than 3 Seconds Skin: No rashes, No breakdown Musculoskeletal: Diffuse atrophy of extremity muscles. Scar aixa on the left leg of fasciectomy in 2011. No Tenderness to Palpation of Joints or Extremities Neurological: Cranial nerves II-XII grossly intact, DTR 2+/4 and Symmetrical, Neuro grossly intact Psych/Mental Status: Confused/disoriented Results Lab / Micro Data Result Diagrams: 01/16/21 17:15 01/16/21 17:15 Assessment & Plan Assessment/Plan (1) Urinary tract infection: QUALIFIERS: Hematuria presence: without hematuria Urinary tract infection type: site unspecified Qualified Code(s): N39.0 - Urinary tract infection, site not specified (2) Acute kidney injury: (3) Glioblastoma multiforme of temporal lobe: PLAN: This patient was seen in conjunction with LUDMILA Leo. I have independently interviewed and examined the patient and reviewed pertinent history, examination findings, laboratory and plan of management. I have reviewed the note and agree with the documented findings with the few additional points. In brief, patient is a 65-year-old gentleman with history of glioblastoma multiforme, stage IV status post right temporal craniotomy in October 2020 on chemoradiation although noncompliant was brought in ER for altered mental status, confusion and disorganized behavior. Initially his blood pressure was normal but systolic in the 90s to 100 even after 2 L normal saline bolus. Patient is being admitted to PCU. Patient did not had urine output but exact chronology of the event not clear. He denies burning micturition but history unreliable therefore empirically started on IV ceftriaxone. Acute kidney injury with low blood pressure/hypotension: Continue IV fluid normal saline resuscitation. If blood pressure still low, start vasopressors to keep MAP more than 65 mmHg. Sagastume catheter insertion and strict intake and output. Recurrent nephrology consulted. Renal ultrasound tomorrow a.m. History of seizure due to glioblastoma multiforme: Home dose of Keppra resumed. No obvious clinical seizure noted. Other comorbidities include history of alcohol dependence, chronic opioid use and dependence, compartment syndrome of left leg status post fasciotomy: Home medication reconciliation done. Nephrotoxic medications held. Needs further discussion of advanced directive when patient is more awake and significant other is present. By default we will keep her full code. I have discussed my assessment with LUDMILA Loe and orders have been reviewed. Charges/Coding Visit Charges Inpatient E&M: 04335 Init Hosp L3
[2021-01-16 21:23] LABS: Reflex Lactate? Y
--- NOTE | 2021-01-16 22:43 | NURSING ---
pt temp 95.5 core temp yesy. Pt put on heating blanket.
[2021-01-16] MEDS: Heparin Injection (Vial) 5,000 UNIT/ML VIAL 5000 UNIT SC (23:13)
[2021-01-17] VITALS (31 sets, daily range): BP systolic 73–117; BP diastolic 53–79; PULSE 68–79; RESP 15–25; TEMP 36.6–37.7; O2SAT 93–100
[2021-01-17 00:14] LABS: Troponin-I HS 28.9 pg/mL (3.0-78.5)
[2021-01-17] MEDS: 0.9% Normal Saline 1,000 ML 150 ML IV ×4 (00:17→21:34)
[2021-01-17 00:25] LABS: Lactic Acid 1.4 mmol/L (0.4-1.9)
[2021-01-17 00:51] LABS: Magnesium 2.3 mg/dL (1.6-2.6); Phosphorus 7.2 mg/dL (2.5-4.9)
--- NOTE | 2021-01-17 00:51 | NURSING ---
Pt temp 98.4. heated blanket d/c
--- NOTE | 2021-01-17 02:03 | PCM.HOSP.N ---
Hospitalist Note Notified by Kat NEFF that patient current blood pressure 73/61 following infusion of third normal saline bolus. Per Kat RN blood pressure repeated to verify. Patient evaluated and is currently asymptomatic. Discussed with Dr. Hensley who agreed that Levophed should be initiated at this time. Levophed ordered with max dose of 10 mcg/min as patient currently only has peripheral IVs.
[2021-01-17 05:14] LABS: Absolute Lymphocyte Count 1.28 X10^3/uL (0.83-4.51); Absolute Neutrophil Count 7.8 X10^3/uL (2.0-7.7); Basophil# 0.02 X10^3/uL; Basophil% 0.2 % (0-1); Eosinophil# 0.18 X10^3/uL; Eosinophils% 1.8 % (0-5); Hematocrit 32.9 % (40-54); Lymphocyte # 1.28 X10^3/ul (0.83-4.51); Lymphocyte % 12.9 % (19-41); Mean Corp Hgb Conc 33.4 g/dL (32-36); Mean Corpuscular Hgb 35.6 pg (27.0-32.0); Mean Corpuscular Volume 106.5 fL (80-94); Mean Platelet Vol. 10.4 fl (6.2-12.0); Monocyte# 0.62 X10^3/uL; Monocyte% 6.2 % (0-10); NRBC Flagged by Analyzer 0 % (0-5); Neutrophil # 7.78 X10^3/uL (2.7-7.7); Neutrophil % 78.4 % (47-70); POSITIVE MORPHOLOGY YES; Platelet Count 230 K/mm3 (150-450); RBC Distribution Width CV 13.5 % (11.6-14.6); RBC Distribution Width SD 52.7 fl (35.1-43.9); Red Blood Count 3.09 M/mm3 (4.6-6.2); White Blood Count 9.9 K/mm3 (4.4-11.0)
[2021-01-17 05:15] LABS: Differential Indicated SCAN CRITERIA MET
--- NOTE | 2021-01-17 05:55 | US_ITS ---
History: TYREE -- scanning 7:15 am EXAMINATION: US Kidney(s) complete (eg, kidneys and bladder) TECHNIQUE: Paez scale and color doppler images were obtained of the kidneys. COMPARISON: None FINDINGS: RIGHT KIDNEY: 11.2 cm in length. No focal parenchymal mass, hydronephrosis, nephrolithiasis, or perinephric fluid collection is noted. LEFT KIDNEY: 10.1 cm in length. No focal parenchymal mass, hydronephrosis, nephrolithiasis, or perinephric fluid collection is noted. URINARY BLADDER: Sagastume catheter in place within a decompressed urinary bladder. US/Kidney and Bladder IMPRESSION: Negative renal ultrasound. at 0913 Reported and signed by: Isaiah Goetz MD Electronically Signed: Isaiah Goetz MD at 9:12 EDT Tel , Service support ,
[2021-01-17 06:00] LABS: Troponin-I HS 42.6 pg/mL (3.0-78.5)
--- NOTE | 2021-01-17 06:56 | EX.PCM.CONCC ---
Assessment & Plan Assessment/Plan (1) Acute kidney injury: PLAN: RECOMMENDATIONS: 1. Continue antimicrobials while awaiting infectious work-up. 2. Obtain blood cultures. 3. Check procalcitonin, toxicology screen and alcohol level. 4. Encourage incentive spirometer use and mobilize patient as tolerated. 5. Await nephrology evaluation. 6. Continue supplemental IV fluids. 7. Speech therapy evaluation. 8. Continue Keppra per home regimen. IMPRESSIONS: 1. Hypotension Likely secondary to intravascular volume depletion in the setting of poor p.o. intake and concurrent use of antihypertensive medications. The patient has been adequately volume resuscitated and appears to be hemodynamically stable at this time. We will continue to hold antihypertensives accordingly. While the patient may have an underlying urinary tract source of infection, he does not appear to be overtly septic. 2. Encephalopathy Likely metabolic in etiology and related to uremia in the setting of TYREE coupled with possible urinary tract source of infection. The patient does remain somewhat confused, but is unclear what his actual baseline is. In addition, he does have a history of chronic alcohol dependency, which is also likely contributing to his current mental state. 3. Acute kidney injury/anion gap metabolic acidosis Likely prerenal in etiology and related to intravascular volume depletion, coupled with concurrent use of antihypertensives and diuretics on an outpatient basis. Nephrology has been consulted to evaluate the patient. Renal ultrasound is unremarkable. Creatinine is improving with volume expansion. Plan to continue supportive measures. 4. History of alcohol and tobacco dependency I personally spent 4 minutes discussing the deleterious effects of continued tobacco use with the patient, including modalities which could be utilized to achieve a smoke-free lifestyle. The patient does not seem overtly interested in quitting smoking. He will be continued on thiamine and folate per the alcohol withdrawal protocol. He will be monitored for any signs or symptoms of acute alcohol withdrawal. 5. Glioblastoma multiform/history of epilepsy Continue baseline outpatient antiepileptic regimen. The patient should follow-up with his oncologist following discharge regarding future plan of care. 6. Hypertension/hyperlipidemia/GERD/poor medical compliance Complicates care, management, recovery and prognosis. Continue to hold antihypertensives for now. Physical therapy to evaluate the patient. This note was generated with Minteraation software. It may contain incorrect words, spelling, and punctuation that were not noted in checking the note before signing. HPI Consult Data Date of Consult: 08/13/21 HPI Narrative Reason for Consultation: TYREE, hypotension, UTI HPI Narrative: The patient is a 65-year-old male, with a history as outlined below, who presented to the emergency department on January 16 with altered mentation. The patient has a history of glioblastoma, diagnosed in October 2020 after he underwent a right temporal craniotomy with resection of the tumor. The diagnosis was made after the patient began to have seizures in June 2020. In December 2020 the patient was started on postoperative radiation with concurrent Temodar but has been poorly compliant with his scheduled treatment regimen. The patient does report a chronic tobacco dependency history and states that he routinely smokes greater than 1 pack of cigarettes per day. In addition, he also confirms a history of chronic alcohol dependency and states that he drinks liquor on a daily basis. On presentation to the emergency department, the patient was noted to be afebrile and hemodynamically stable. He was initially documented to be saturating 94% on room air. Initial laboratory evaluation revealed a white blood cell count of 14,000. Chemistry profile was notable for a bicarbonate of 18, anion gap of 16, BUN of 80 and creatinine of 7.86. Lactate was noted to be 2.0. Phosphorus was high at 7.2. AST and ALT were increased to 60 and 106, respectively. Urine analysis was positive for nitrites and leukocyte esterase along with rare urine bacteria. CT head revealed no acute intracranial changes. Chest x-ray demonstrated no acute cardiopulmonary process. This morning, nursing staff reported that the patient received a total of 3 L of fluid overnight. Although there was initial concern that the patient may require vasopressor support, and never had to be initiated. He remains n.p.o. after failing a swallow evaluation. The patient is maintaining appropriate oxygen saturations on room air. [facility] Medical History Alcohol dependence Alcohol use disorder, severe, dependence CAD (coronary artery disease) Chronic narcotic dependence Cocaine use Essential hypertension, benign FH: CVA (cerebrovascular accident) Hepatitis C History of multiple strokes Macrocytosis Marijuana use Nodule of skin of head Pain of right lower extremity Pneumonia Poor compliance with medication PVD (peripheral vascular disease) Seizure disorder Smoker Home Medications atorvastatin 80 mg tablet 80 mg PO DAILY 11/11/20 [History Last Taken 01/15/21] calcium carbonate 500 mg (1,250 mg)-vitamin D3 200 unit tablet 1 tab PO TID 11/11/20 [History Last Taken 01/15/21] carvedilol 12.5 mg tablet 12.5 mg PO Q12H 11/11/20 [History Last Taken 01/15/21] folic acid 1 mg tablet 1 mg PO DAILY 11/11/20 [History Last Taken 01/15/21] isosorbide mononitrate 30 mg tablet,extended release 24 hr 30 mg PO DAILY 11/11/20 [History Last Taken 01/15/21] multivitamin with minerals 1 cap PO DAILY 11/11/20 [History Last Taken 01/15/21] aspirin 81 mg tablet,delayed release 81 mg PO DAILY 11/14/20 [History Last Taken 01/15/21] lisinopril 40 mg tablet 40 mg PO DAILY tab 11/14/20 [History Last Taken 01/15/21] ondansetron 4 mg disintegrating tablet 4 mg PO Q8H PRN #30 tab 12/10/20 [Rx Last Taken Unknown] levetiracetam 750 mg PO BID 01/16/21 [History Last Taken 01/15/21] pantoprazole 40 mg PO BID 01/16/21 [History Last Taken 01/15/21] spironolactone 25 mg PO DAILY 01/16/21 [History Last Taken 01/15/21] Allergy/AdvReac Type Severity Reaction Status Date / Time ketorolac AdvReac Nausea/Vom/ Verified 01/16/21 16:18 Diarrhea tromethamine AdvReac Nausea/Vom/ Verified 01/16/21 16:18 Diarrhea Family History Sister Cancer Father Heart disease Brother Lymphoma Surgical History History of craniotomy (~10/2020) Social History household members: other Smoking Status: Current every day smoker tobacco type: cigarettes second hand exposure: Yes alcohol intake: current details: occasionally beer substance use type: former substance user, marijuana and crack/cocaine seatbelt use: always do you feel safe at home: Yes ROS Constitutional Constitutional: Reports fatigue and weakness Eyes Eyes: Denies blurry vision or change in vision ENT HEENT: Denies headache(s), loss taste/smell or nasal congestion Cardiovascular Cardiovascular: Reports dyspnea; Denies chest pain Respiratory/Chest Respiratory/Chest: Reports dyspnea; Denies chest tightness or cough Gastrointestinal Gastrointestinal: Denies abdominal pain, diarrhea, nausea or vomiting Genitourinary Genitourinary: Reports dysuria Musculoskeletal Musculoskeletal: Denies arthralgias Integumentary Integumentary: Denies lesions, rash or skin ulcer Neurologic Neurologic: Reports confusion; Denies abnormal gait or abnormal speech Psychiatric Psychiatric: Denies anxiety or depression Endocrine Endocrinology: Denies fatigue Hematologic/Lymphatic Hematologic/Lymphatic: Denies easy bleeding or easy bruising Physical Exam Const alert Constitutional Narrative: Appears older than stated age. A bit unkempt in appearance. General Appearance: cooperative Orientation / Consciousness: confused HEENT normocephalic and head/scalp atraumatic Eyes PERRL and EOMs intact bilaterally Neck supple General: trachea midline Chest inspection of chest normal Resp Auscultation: diminished lung sounds; Negative for rales, rhonchi or wheezes Cardio regular rate and regular rhythm GI normal to inspection, nondistended, normoactive bowel sounds Extremity General Extremity: clubbing; Negative for edema Skin no rashes or lesions noted Neuro no focal motor deficits Psych cooperative and affect normal Lab / Micro Data Result Diagrams: 01/17/21 05:02 01/17/21 05:02 Labs: Laboratory Results - last 24 hr 01/16/21 17:15: WBC 14.5 H, RBC 4.52 L, Hgb 15.9, Hct 47.3, MCV 104.6 H, MCH 35.2 H, MCHC 33.6, RDW Std Deviation 51.8 H, RDW Coeff of Serena 13.4, Plt Count 361, MPV 10.6, Immature Gran % (Auto) 0.500, Neut % (Auto) 84.4 H, Lymph % (Auto) 7.3 L, [place] % (Auto) 7.0, Eos % (Auto) 0.5, Baso % (Auto) 0.3, Absolute Neuts (auto) 12.2 H, Absolute Lymphs (auto) 1.05, Nucleated RBC % 0 01/16/21 17:15: Sodium 136, Potassium 4.9, Chloride 102, Carbon Dioxide 18.0 L, Anion Gap 16 H, BUN 80 H, Creatinine 7.86 H*, Estim Creat Clear Calc 6.10, Est GFR (MDRD) Af Amer 9 L, Est GFR (MDRD) Non-Af 7 L, BUN/Creatinine Ratio 10.2, Glucose 124 H, Calcium 11.2 H, Total Bilirubin 0.50, AST 60 H, ALT 106 H, Alkaline Phosphatase 81, Troponin I High Sens 41.7, Total Protein 8.9 H, Albumin 3.8, Globulin 5.1 H, Albumin/Globulin Ratio 0.7 L 01/16/21 17:15: Lactic Acid 2.0 01/16/21 17:15: Ammonia < 10.0 L 01/16/21 17:15: Total Creatine Kinase 209 01/16/21 17:45: Urine Color Yellow, Urine Clarity Sl. Cloudy, Urine pH 5.0, Ur Specific [place] 1.025, Urine Protein 30 H, Urine Glucose (UA) 50 H, Urine Ketones 5 H, Urine Occult Blood 50 H, Urine Nitrite Positive H, Urine Bilirubin 1 H, Urine Urobilinogen Normal, Ur Leukocyte Esterase 100 H, Urine RBC 0-5 SEEN, Urine WBC 5-10 SEEN, Ur Squamous Epith Cells 0-5 SEEN, Amorphous Sediment 2+ URATE, Urine Bacteria RARE, Urine Mucus 0 SEEN 01/16/21 23:32: Lactic Acid 1.4 01/16/21 23:32: Troponin I High Sens 28.9 01/16/21 23:34: Phosphorus 7.2 H, Magnesium 2.3 01/17/21 05:02: WBC 9.9, RBC 3.09 L, Hgb 11.0 L, Hct 32.9 L, MCV 106.5 H, MCH 35.6 H, MCHC 33.4, RDW Std Deviation 52.7 H, RDW Coeff of Serena 13.5, Plt Count 230, MPV 10.4, Immature Gran % (Auto) 0.500, Neut % (Auto) 78.4 H, Lymph % (Auto) 12.9 L, [place] % (Auto) 6.2, Eos % (Auto) 1.8, Baso % (Auto) 0.2, Absolute Neuts (auto) 7.8 H, Absolute Lymphs (auto) 1.28, Nucleated RBC % 0 01/17/21 05:02: Troponin I High Sens 42.[address] 01/16/21 17:25 IMPRESSION: Chronic involutional changes without evidence of acute intracranial or calvarial abnormality. There is no major interval change. Electronically Signed: Ryan Pitt DO at 17:48 EDT Tel [phone], Service support , Chest X-Ray 01/16/21 17:25 IMPRESSION: No acute cardiopulmonary disease. Electronically Signed: Ryan Pitt DO at 17:49 EDT Tel [phone], Service support , Charges/Coding Visit Charges Inpatient E&M: 24812 Init Hosp L3 Behavior Interventions Behavior Intervention: 37078 Smoking Cessation 3-10 min
--- NOTE | 2021-01-17 07:25 | PN.HOSP_ITS ---
Subjective Subjective Patient is a 65 y/o male who was admitted with a complaint of confusion and decreased oral intake. On admission, he was found to be hypotensive, with TYREE and UTI. He was admitted to the ICU and hydrated with IVF as well as started on IV antibiotics. Patient seen and examined. He was lying comfortably in bed and had no complaints. He did appear to be a bit confused, but was able to answer questions. He had no active complaints and review of systems was otherwise negative. Objective Data Objective Data Vital Signs: Vital Signs Temp Pulse Resp BP Pulse Ox 98.2 F 70 19 H 101/64 97 01/17/21 07:00 01/17/21 07:00 01/17/21 07:00 01/17/21 07:00 01/17/21 07:00 Oxygen Delivery Method Room Air Weight: 103 lb 6.349 oz Body Mass Index (BMI) 16.2 Intake & Output: Intake and Output for Last 24 Hours 01/15/21 01/16/21 01/17/21 23:59 23:59 23:59 Intake Total 3157.5 / 3157.5 1922.5 / 1922.5 Output Total 205 / 205 Balance 3157.5 / 3127.5 1717.5 / 1717.5 Lab / Micro Data Result Diagrams: 01/17/21 05:02 01/17/21 05:02 Labs: Laboratory Results - last 24 hr 01/16/21 17:15: WBC 14.5 H, RBC 4.52 L, Hgb 15.9, Hct 47.3, MCV 104.6 H, MCH 35.2 H, MCHC 33.6, RDW Std Deviation 51.8 H, RDW Coeff of Serena 13.4, Plt Count 361, MPV 10.6, Immature Gran % (Auto) 0.500, Neut % (Auto) 84.4 H, Lymph % (Auto) 7.3 L, [place] % (Auto) 7.0, Eos % (Auto) 0.5, Baso % (Auto) 0.3, Absolute Neuts (auto) 12.2 H, Absolute Lymphs (auto) 1.05, Nucleated RBC % 0 01/16/21 17:15: Sodium 136, Potassium 4.9, Chloride 102, Carbon Dioxide 18.0 L, Anion Gap 16 H, BUN 80 H, Creatinine 7.86 H*, Estim Creat Clear Calc 6.10, Est GFR (MDRD) Af Amer 9 L, Est GFR (MDRD) Non-Af 7 L, BUN/Creatinine Ratio 10.2, Glucose 124 H, Calcium 11.2 H, Total Bilirubin 0.50, AST 60 H, ALT 106 H, Alkaline Phosphatase 81, Troponin I High Sens 41.7, Total Protein 8.9 H, Albumin 3.8, Globulin 5.1 H, Albumin/Globulin Ratio 0.7 L 01/16/21 17:15: Lactic Acid 2.0 01/16/21 17:15: Ammonia < 10.0 L 01/16/21 17:15: Total Creatine Kinase 209 01/16/21 17:45: Urine Color Yellow, Urine Clarity Sl. Cloudy, Urine pH 5.0, Ur Specific [place] 1.025, Urine Protein 30 H, Urine Glucose (UA) 50 H, Urine Ketones 5 H, Urine Occult Blood 50 H, Urine Nitrite Positive H, Urine Bilirubin 1 H, Urine Urobilinogen Normal, Ur Leukocyte Esterase 100 H, Urine RBC 0-5 SEEN, Urine WBC 5-10 SEEN, Ur Squamous Epith Cells 0-5 SEEN, Amorphous Sediment 2+ URATE, Urine Bacteria RARE, Urine Mucus 0 SEEN 01/16/21 23:32: Lactic Acid 1.4 01/16/21 23:32: Troponin I High Sens 28.9 01/16/21 23:34: Phosphorus 7.2 H, Magnesium 2.3 01/17/21 05:02: WBC 9.9, RBC 3.09 L, Hgb 11.0 L, Hct 32.9 L, MCV 106.5 H, MCH 35.6 H, MCHC 33.4, RDW Std Deviation 52.7 H, RDW Coeff of Serena 13.5, Plt Count 230, MPV 10.4, Immature Gran % (Auto) 0.500, Neut % (Auto) 78.4 H, Lymph % (Auto) 12.9 L, [place] % (Auto) 6.2, Eos % (Auto) 1.8, Baso % (Auto) 0.2, Absolute Neuts (auto) 7.8 H, Absolute Lymphs (auto) 1.28, Nucleated RBC % 0 01/17/21 05:02: Troponin I High Sens 42.6 Radiography Diagnostic Testing: Radiology Impression Brain CT 01/16/21 17:25 IMPRESSION: Chronic involutional changes without evidence of acute intracranial or calvarial abnormality. There is no major interval change. Electronically Signed: Ryan Pitt DO at 17:48 EDT Tel [phone], Service support , Chest X-Ray 01/16/21 17:25 IMPRESSION: No acute cardiopulmonary disease. Electronically Signed: Ryan Pitt DO at 17:49 EDT Tel [phone], Service support , Physical Exam Const alert, oriented x3 and no apparent distress Orientation / Consciousness: lethargic Exam Limitations: no limitations Nutritional Appearance: cachectic HEENT head/scalp atraumatic Head and Scalp: normocephalic Mouth: dry mucous membranes Eyes PERRL, EOMs intact bilaterally and conjunctivae normal Neck no lymphadenopathy, supple and no JVD Resp normal respiratory effort, no retractions, no use of accessory muscles and clear to auscultation bilaterally Cardio regular rate, regular rhythm, S1 normal heart sound, S2 normal heart sound and no murmurs GI normal to inspection, nondistended, normoactive bowel sounds, soft to palpation, non-tender and non-distended Extremity normal to inspection, full ROM and no clubbing, cyanosis or edema Peripheral Pulses: Yes pulses 2+ throughout Skin no rashes or lesions noted Neuro oriented x3, CN's II-XII intact bilaterally and moves all extremities Sensorium / Orientation: awake and alert Psych affect normal Assessment & Plan Assessment/Plan (1) Acute kidney injury: (2) Urinary tract infection: QUALIFIERS: Urinary tract infection type: site unspecified Hematuria presence: without hematuria Qualified Code(s): N39.0 - Urinary tract infection, site not specified PLAN: #UTI * urine cultures pending * on IV ceftriaxone * continue gentle hydration with IVF * #TYREE * Cr was 7.86 on admission, now down to * hydrate with iVF * nephrology consulted * patient making urine; renal USG pending * trend Cr * nephrotoxic meds on hold * #Hypotension: BP was running low, so BP med held. Being hydrated with IVF #History of seizures * on keppra * #history of glioblastoma multiforme * s/p resectioon with chemoradiation * follow up with oncology on outpatient basis * #Severe protein calorie malnutrition * BMI is 16. * nutrition consulted #History of alcohol dependence * not in withdrawal now. Will monitor * DVT prohylaxis: lovenox Code status; full code Charges/Coding Visit Charges Inpatient E&M: 67342 Subs Hosp L3
[2021-01-17 08:40] LABS: ALB/GLOB Ratio 0.7 RATIO (0.9-2.4); AST(SGOT) 48 U/L (15-37); Alanine Aminotransfer ALT/SGPT 63 U/L (16-61); Albumin, Serum 2.5 g/dL (3.2-5.0); Alkaline Phosphatase 48 U/L (45-117); Anion Gap 9 (5-15); BUN 70 mg/dL (7-18); BUN/Creat Ratio 13.7 RATIO (10-20); Chloride 120 mmol/L (98-107); EST Glomerular Filtration Rate 12 mL/min (>60); Est Glom Filt Rate - Afr Amer 15 mL/min (>60); Estimated Creatinine Clearance 9.58 ml/min; Globulin 3.4 g/dL (2.2-4.2); Glucose 78 mg/dL (74-106); Potassium 3.9 mmol/L (3.5-5.1); Protein, Total 5.9 g/dL (6.4-8.2); Sodium Level 144 mmol/L (136-145)
[2021-01-17 10:09] LABS: Procalcitonin 0.29 ng/mL (0.00-0.09)
[2021-01-17] MEDS: Menthol/Lanolin/Calamine/Znox 113 GM Tube 1 APPLIC TOPICAL ×2 (11:23→21:36)
[2021-01-17] MEDS: Heparin Injection (Vial) 5,000 UNIT/ML VIAL 5000 UNIT SC ×2 (11:25→21:38)
--- NOTE | 2021-01-17 11:25 | CASEMGMT ---
TAWANDA VEGA ASSESSMENT Pt confused. TAWANDA VEGA placed call to pt's sig other/POA, Eufemia, for initial transition planning/care coordination assessment. TAWANDA VEGA introduced self and role at [facility]. Eufemia voices understanding and consents to assessment at this time. Care providers, pharmacy, and demographics verified/updated at this time. PCP: Dr Oneil Specialists: Dr Winters--oncology, Dr Avitia--radiation oncology. Pt sees a bandage maker in [place], but Eufemia does not remember name of dr. Preferred Pharmacy: [facility] Retail Insurance: [facility], [facility] Meg Prescription Benefit: Yes Living Will/HPOA: Eufemia is not sure if pt has completed a LW. He has HPOA, who is Eufemia. Copy of HPOA is on e-chart @ [facility]. LNOK: Eufemia, Sig/other, is HPOA. Mother (90-yr-old) lives in [place]. Brother lives in [place]. Living Arrangements: Lives w/Eufemia in 2-story home w/1 step to enter. [employer]. Eufemia manages all home tasks, pt's medications, and appts. Up until the past few days, pt was able to bath/dress himself. Eufemia states in the past few days he has become so weak that he has been unable to care for himself and she has been having to provide this care for him. He has also just recently become incontinent of bowels. Transportation: Eufemia drives and denies having any transportation concerns at this time. DME: Pt has the following DME: cane, walker, rails/grab bars, hand held shower Eufemia states pt could use a shower chair and BSC. She was made aware [facility] does not cover for cost of these and made aware of locations these could be purchased at. HHC/SNF: No hx of SNF. Pt has had [facility] in the past. Eufemia wishes for pt to return home, if able, but states if he is still very weak and therapy recommends SNF, Then we would have to discuss it. I don't know if he would agree to that. I have been taking care of him and have not been able to leave him for months now. She states he has fallen 3 times in the last few days. She states, if he is able to return home, she would be agreeable to [facility] Eufemia states pt has not drank any ETOH for about 3 weeks, stating, He doesn't even talk about it anymore. RN SILVIA inquired about hx of Cocaine use. Eufemia chuckled and states He didn't use Cocaine. He didn't even know he was taking it. He was using marijuana and it must have been laced w/it. Advised Eufemia to ask for CM if any further questions/concerns/needs arise. Voices understanding. CM/SW to follow for discharge planning. PT/OT evals pending. PLAN: TBD by course of treatment and pt progress. Virgen WHITE RN CM
--- NOTE | 2021-01-17 12:22 | CASEMGMT ---
TAWANDA VEGA NOTE: Pt qualifies for a Palliative referral per the [facility] palliative screening tool at this time. Dr Flores aware and states ok for Palliative c/s at this time. Order placed. Palliative updated at this time. Face Sheet faxed to Palliative at this time. Virgen WHITE RN CM
--- NOTE | 2021-01-17 15:06 | PCM.CONS.R ---
Assessment & Plan Assessment/Plan (1) Acute kidney injury: PLAN: The patient has no prior history of chronic kidney disease. Serum creatinine was 0.8 mg/dL on 01/06/2021. TYREE is secondary to prerenal azotemia which may have progressed to ischemic ATN. There was no significant protein on urinalysis. There was no RBCs either. Therefore, I have low suspicion for vasculitis or glomerulonephritis causing TYREE at this time. The patient was also taking lisinopril and spironolactone prior to admission which may have exacerbated volume depletion. Low suspicion for other causes of TYREE at this point. Renal function has improved with IV fluid. There is no need for kidney replacement therapy. Continue IV fluid as we are doing. Recheck renal function panel again tomorrow morning. If there is no further improvement in renal function, I will check renal ultrasound to be complete. Current medications are reviewed and are appropriately dosed for his estimated creatinine clearance. (2) Hypotension: PLAN: Likely due to volume depletion. The patient is also being treated for possible infection until more data becomes available. I agree with holding lisinopril and spironolactone. Continue IV fluid as you are doing. (3) Metabolic acidosis: PLAN: The patient has non-anion gap metabolic acidosis even after accounting for hypoalbuminemia. I suspect acidosis may be due to early TYREE and prior diarrhea. Recheck serum bicarbonate level again tomorrow. If there is any further decrease in bicarbonate level, we can switch the patient over to LR. (4) Glioblastoma multiforme of temporal lobe: PLAN: The patient was receiving radiation therapy prior to admission. HPI Consult Data Date of Consult: 01/17/21 HPI Narrative HPI Narrative: SHONDA MCCOY, is a 65-year-old man with past history of glioblastoma, coronary artery disease, hypertension, stroke, and hepatitis C. The patient also has a history of alcoholism and substance abuse. The patient presented to the hospital yesterday with confusion. Apparently, he has not been eating or hydrating well for 5 days prior to presentation. He has also missed his scheduled appointment for radiation therapy for glioblastoma. Nephrology is asked to see the patient because of acute kidney injury. He presented to the hospital on 01/16/2021 with serum creatinine of 7.86 mg/dL. Serum creatinine is normal at baseline with serum creatinine of 0.78 mg/dL on 01/06/2021. The patient denies current chest pain or shortness of breath. He feels better today. However, appetite is still poor. He denies current nausea, vomiting, or diarrhea. There has been no edema of the lower extremity. He denies gross hematuria or lower urinary tract symptoms prior to admission. He denies taking NSAIDs on a regular basis. PFSH Medical History Alcohol dependence Alcohol use disorder, severe, dependence CAD (coronary artery disease) Chronic narcotic dependence Cocaine use Essential hypertension, benign FH: CVA (cerebrovascular accident) Hepatitis C History of multiple strokes Macrocytosis Marijuana use Nodule of skin of head Pain of right lower extremity Pneumonia Poor compliance with medication PVD (peripheral vascular disease) Seizure disorder Smoker Home Medications atorvastatin 80 mg tablet 80 mg PO DAILY 11/11/20 [History Last Taken 01/15/21] calcium carbonate 500 mg (1,250 mg)-vitamin D3 200 unit tablet 1 tab PO TID 11/11/20 [History Last Taken 01/15/21] carvedilol 12.5 mg tablet 12.5 mg PO Q12H 11/11/20 [History Last Taken 01/15/21] folic acid 1 mg tablet 1 mg PO DAILY 11/11/20 [History Last Taken 01/15/21] isosorbide mononitrate 30 mg tablet,extended release 24 hr 30 mg PO DAILY 11/11/20 [History Last Taken 01/15/21] multivitamin with minerals 1 cap PO DAILY 11/11/20 [History Last Taken 01/15/21] aspirin 81 mg tablet,delayed release 81 mg PO DAILY 11/14/20 [History Last Taken 01/15/21] lisinopril 40 mg tablet 40 mg PO DAILY tab 11/14/20 [History Last Taken 01/15/21] ondansetron 4 mg disintegrating tablet 4 mg PO Q8H PRN #30 tab 12/10/20 [Rx Last Taken Unknown] levetiracetam 750 mg PO BID 01/16/21 [History Last Taken 01/15/21] pantoprazole 40 mg PO BID 01/16/21 [History Last Taken 01/15/21] spironolactone 25 mg PO DAILY 01/16/21 [History Last Taken 01/15/21] Allergy/AdvReac Type Severity Reaction Status Date / Time ketorolac AdvReac Nausea/Vom/ Verified 01/16/21 16:18 Diarrhea tromethamine AdvReac Nausea/Vom/ Verified 01/16/21 16:18 Diarrhea Family History Sister Cancer Father Heart disease Brother Lymphoma Surgical History History of craniotomy (~10/2020) Social History household members: other Smoking Status: Current every day smoker tobacco type: cigarettes second hand exposure: Yes alcohol intake: current details: occasionally beer substance use type: former substance user, marijuana and crack/cocaine seatbelt use: always do you feel safe at home: Yes ROS ROS Narrative Review of systems as per HPI. 10 out of 10 review of system was done which were are otherwise noncontributory to HPI. Physical Exam Narrative General: Ill-appearing man who appears to be older than stated age. HEENT: Normocephalic, atraumatic. Mucous membrane dry. Neck: Supple no JVD. Lungs: Clear to auscultation bilaterally. Abdomen: Normal bowel sounds, soft, nontender, no guarding or rebound. Extremity: No lower extremity edema. No clubbing or cyanosis. Full passive range of motion. Skin: No rash. Skin is warm and dry. Neurologic: No focal neurologic deficit. Psychiatric: Normal mood and affect. Medical Records Data Medical Nutrition Assessment Dietitian: Nutrition Therapy Diagnosis Start: 01/17/21 10:57 Freq: Status: Active Protocol: Document 01/17/21 11:13 (Rec: 01/17/21 11:13 [id number]) Nutrition Malnutrition Evidence of Malnutrition Exists Yes Malnutrition (severe): Chronic Evidenced By Suboptimal Energy Intake ( Severe),Weight Loss (Severe), Physical Changes (Severe) Clinical Problem Chronic Disease or Condition Related Malnutrition Etiology chronic, severe malnutrition r /t inadequate energy intake d/ t decreased appetite, poor dentition w/ increased nutrient needs d/t glioblastoma Signs/Symptoms as evidenced by unintentional wt loss of 36.6#/26% <1 year; estimated energy intake meeting <50% of estimated nutritional needs x 4 months; severe muscle wasting/fat loss evident upon exam Status Active Problem Recommendation Dietitian Recommendations/Changes regular diet, consistency per [employer]; 120mL ensure enlive 4x/ day when ok for PO intake. Fortified foods and supplements w/ meals. Recommend close monitoring of electrolytes given risk for refeeding syndrome. Will monitor renal function/PO intake and adjust diet parameters as indicated. Lab / Micro Data Result Diagrams: 01/17/21 05:02 01/17/21 05:02 Labs: Laboratory Results - last 24 hr 01/16/21 17:15: WBC 14.5 H, RBC 4.52 L, Hgb 15.9, Hct 47.3, MCV 104.6 H, MCH 35.2 H, MCHC 33.6, RDW Std Deviation 51.8 H, RDW Coeff of Serena 13.4, Plt Count 361, MPV 10.6, Immature Gran % (Auto) 0.500, Neut % (Auto) 84.4 H, Lymph % (Auto) 7.3 L, Bond % (Auto) 7.0, Eos % (Auto) 0.5, Baso % (Auto) 0.3, Absolute Neuts (auto) 12.2 H, Absolute Lymphs (auto) 1.05, Nucleated RBC % 0 01/16/21 17:15: Sodium 136, Potassium 4.9, Chloride 102, Carbon Dioxide 18.0 L, Anion Gap 16 H, BUN 80 H, Creatinine 7.86 H*, Estim Creat Clear Calc 6.10, Est GFR (MDRD) Af Amer 9 L, Est GFR (MDRD) Non-Af 7 L, BUN/Creatinine Ratio 10.2, Glucose 124 H, Calcium 11.2 H, Total Bilirubin 0.50, AST 60 H, ALT 106 H, Alkaline Phosphatase 81, Troponin I High Sens 41.7, Total Protein 8.9 H, Albumin 3.8, Globulin 5.1 H, Albumin/Globulin Ratio 0.7 L 01/16/21 17:15: Lactic Acid 2.0 01/16/21 17:15: Ammonia < 10.0 L 01/16/21 17:15: Total Creatine Kinase 209 01/16/21 17:45: Urine Color Yellow, Urine Clarity Sl. Cloudy, Urine pH 5.0, Ur Specific [place] 1.025, Urine Protein 30 H, Urine Glucose (UA) 50 H, Urine Ketones 5 H, Urine Occult Blood 50 H, Urine Nitrite Positive H, Urine Bilirubin 1 H, Urine Urobilinogen Normal, Ur Leukocyte Esterase 100 H, Urine RBC 0-5 SEEN, Urine WBC 5-10 SEEN, Ur Squamous Epith Cells 0-5 SEEN, Amorphous Sediment 2+ URATE, Urine Bacteria RARE, Urine Mucus 0 SEEN 01/16/21 23:32: Lactic Acid 1.4 01/16/21 23:32: Troponin I High Sens 28.9 01/16/21 23:34: Phosphorus 7.2 H, Magnesium 2.3 01/17/21 05:02: WBC 9.9, RBC 3.09 L, Hgb 11.0 L, Hct 32.9 L, MCV 106.5 H, MCH 35.6 H, MCHC 33.4, RDW Std Deviation 52.7 H, RDW Coeff of Serena 13.5, Plt Count 230, MPV 10.4, Immature Gran % (Auto) 0.500, Neut % (Auto) 78.4 H, Lymph % (Auto) 12.9 L, Bond % (Auto) 6.2, Eos % (Auto) 1.8, Baso % (Auto) 0.2, Absolute Neuts (auto) 7.8 H, Absolute Lymphs (auto) 1.28, Nucleated RBC % 0 01/17/21 05:02: Sodium 144, Potassium 3.9, Chloride 120 H, Carbon Dioxide 15.0 L, Anion Gap 9, BUN 70 H, Creatinine 5.10 H, Estim Creat Clear Calc 9.58, Est GFR (MDRD) Af Amer 15 L, Est GFR (MDRD) Non-Af 12 L, BUN/Creatinine Ratio 13.7, Glucose 78, Calcium 8.0 L, Total Bilirubin 0.20, AST 48 H, ALT 63 H, Alkaline Phosphatase 48, Total Protein 5.9 L, Albumin 2.5 L, Globulin 3.4, Albumin/Globulin Ratio 0.7 L 01/17/21 05:02: Troponin I High Sens 42.6 01/17/21 09:25: Procalcitonin 0.29 H 01/17/21 09:25: Ethyl Alcohol 3.[address] 01/16/21 17:25 IMPRESSION: Chronic involutional changes without evidence of acute intracranial or calvarial abnormality. There is no major interval change. Electronically Signed: Ryan Pitt DO at 17:48 EDT Tel [phone], Service support , Chest X-Ray 01/16/21 17:25 IMPRESSION: No acute cardiopulmonary disease. Electronically Signed: Ryan Pitt DO at 17:49 EDT Tel [phone], Service support , Renal Ultrasound 01/17/21 05:55 IMPRESSION: Negative renal ultrasound. at 0913 Reported and signed by: Isaiah Goetz MD Electronically Signed: Isaiah Goetz MD at 9:12 EDT Tel , Service support ,
--- NOTE | 2021-01-17 16:13 | CON.PCM.PA_ITS ---
Assessment & Plan Assessment/Plan (1) Weakness: (2) Altered mental status: QUALIFIERS: Altered mental status type: unspecified Qualified Code(s): R41.82 - Altered mental status, unspecified (3) Glioblastoma multiforme of temporal lobe: (4) Acute kidney injury: (5) Alcohol dependence: QUALIFIERS: Substance use status: unspecified alcohol-induced disorder Qualified Code(s): F10.29 - Alcohol dependence with unspecified alcohol-induced disorder (6) Chronic narcotic dependence: (7) Poor compliance with medication: (8) Macrocytosis: (9) Urinary tract infection: QUALIFIERS: Hematuria presence: without hematuria Urinary tract infection type: site unspecified Qualified Code(s): N39.0 - Urinary tract infection, site not specified (10) Metabolic acidosis: (11) Nodule of skin of head: PLAN: 65-year-old male with history of glioblastoma multiform of temporal lobe, status post tumor resection and subsequent radiation therapy. Noted to be noncompliant with medications and treatment for his cancer. Seen today for p alliative care consultation for supportive management. 1. Weakness and debility: Multifactorial, acutely contributing would be metabolic acidosis/TYREE/UTI. Chronically, electrolyte derangements from alcohol dependence and current glioblastoma treatment. Has significant other. It is unclear if he would follow through with outpatient therapy, if recommended. He will receive therapy while in the hospital. 2. Altered mental status: He is not combative but remains confused. Alert to self only. Unclear baseline mentation, does have multiple areas of remote posttraumatic encephalomalacia. Says he lives w/ his dad who essentially takes care of him. CT neg. h/o glioblastoma. Treat underlying causes and monitor for changes. 3. History of current alcohol dependence, chronic narcotic dependence: Patient would be at high risk for opioid administration. He does not seem to be in any sort of pain. Again, mentation is poor at this point. Palliative would not be prescribing for him, however we will provide supportive care. Recommend counseling through our social security specialist, Imelda, and/or community resources for dependence. 4. TYREE/UTI: Improving with hydration. Nephrology following. Defer management to attending and nephrology. 5. Metabolic acidosis/skin nodule of head/history of poor compliance/glioblastoma/seizures: Complicates overall care, management, recovery, and prognosis. Follows with [facility]. MRI of the pancreas November 20, 2020 showed pancreatic head lesion. Overall poor prognosis from what I can gather. Thank you for the opportunity to participate in this patient's care, please do not hesitate to contact [facility] with any further questions or concerns. Palliative direct line is [phone]. We will follow up with a liaison visit once patient improves clinically and will discuss palliative services further at that time. His next of kin is his significant other, Eufemia Infante at [phone]. I would advise discussion with her as patient does not currently have decisional capacity. We will try to give her a call. New Greater than 50% of F2F visit dedicated to education and counseling of palliative care services, medications, comorbid conditions and potential assistance with management, and plan of care moving forward. Start time: 1613 End time: 1702 HPI Consult Data Date of Consult: 01/17/21 HPI Narrative HPI Narrative: SHONDA MCCOY, is a 65 M who presented to [facility] 01/16/2021 with weakness and altered mental status. Patient was diagnosed in October 2020 with a glioblastoma status post right temporal craniotomy with resection of tumor. He was started on radiation and Temodar in December but has been reportedly noncompliant. He has a significant substance abuse history, including daily liquor intake, tobacco abuse, narcotic abuse, and cocaine use. CT the head in the ED showed no acute changes. Chest x-ray showed nothing acute. Blood pressure was initially low and he received fluid resuscitation. Patient was admitted to the ICU for further evaluation and management. Apparently he missed his last radiation appointment for glioblastoma. Patient is n.p.o. secondary to his failing swallowing evaluation. He is also being treated for TYREE and UTI. He is on IV antibiotics and cultures were sent. He remains pleasant but confused, however baseline mentation is unclear. Nephrology has been consulted due to creatinine of 7.86 on admit, now down to 5.1. Leukocytosis resolved. Patient did have normal renal function as of 01/06/2021. Shonda was seen today for palliative care consultation in light of his cancer diagnosis and poor quality of life. He has been referred in the past but declined services. At that time, it was advised we would follow the patient for supportive management, however would not be prescribing any medications through palliative care. Patient seen and examined. He is alert but confused. He thinks he is in [place]. Also states we are in the . Denies any N/V/D. Denies constipation. Denies shortness of breath or chest pain. Denies abdominal pain or headaches. Denies lower extremity edema. Denies dizziness or syncope, no vision changes. Says he passed out a long time ago. No current pain. He does feel fatigued and wants to go back to sleep. PFSH Medical History Alcohol dependence Alcohol use disorder, severe, dependence CAD (coronary artery disease) Chronic narcotic dependence Cocaine use Essential hypertension, benign FH: CVA (cerebrovascular accident) Hepatitis C History of multiple strokes Macrocytosis Marijuana use Nodule of skin of head Pain of right lower extremity Pneumonia Poor compliance with medication PVD (peripheral vascular disease) Seizure disorder Smoker Home Medications atorvastatin 80 mg tablet 80 mg PO DAILY 11/11/20 [History Last Taken 01/15/21] calcium carbonate 500 mg (1,250 mg)-vitamin D3 200 unit tablet 1 tab PO TID 11/11/20 [History Last Taken 01/15/21] carvedilol 12.5 mg tablet 12.5 mg PO Q12H 11/11/20 [History Last Taken 01/15/21] folic acid 1 mg tablet 1 mg PO DAILY 11/11/20 [History Last Taken 01/15/21] isosorbide mononitrate 30 mg tablet,extended release 24 hr 30 mg PO DAILY 11/11/20 [History Last Taken 01/15/21] multivitamin with minerals 1 cap PO DAILY 11/11/20 [History Last Taken 01/15/21] aspirin 81 mg tablet,delayed release 81 mg PO DAILY 11/14/20 [History Last Taken 01/15/21] lisinopril 40 mg tablet 40 mg PO DAILY tab 11/14/20 [History Last Taken 01/15/21] ondansetron 4 mg disintegrating tablet 4 mg PO Q8H PRN #30 tab 12/10/20 [Rx Last Taken Unknown] levetiracetam 750 mg PO BID 01/16/21 [History Last Taken 01/15/21] pantoprazole 40 mg PO BID 01/16/21 [History Last Taken 01/15/21] spironolactone 25 mg PO DAILY 01/16/21 [History Last Taken 01/15/21] Allergy/AdvReac Type Severity Reaction Status Date / Time ketorolac AdvReac Nausea/Vom/ Verified 01/16/21 16:18 Diarrhea tromethamine AdvReac Nausea/Vom/ Verified 01/16/21 16:18 Diarrhea Family History Sister Cancer Father Heart disease Brother Lymphoma Surgical History History of craniotomy (~10/2020) Social History household members: other Smoking Status: Current every day smoker tobacco type: cigarettes second hand exposure: Yes alcohol intake: current details: occasionally beer substance use type: former substance user, marijuana and crack/cocaine seatbelt use: always do you feel safe at home: Yes ROS ROS Narrative Review of systems otherwise negative from a constitutional, HEENT, respiratory, cardiovascular, GI, genitourinary, musculoskeletal, skin, neurologic, psychiatric and hematologic system unless stated above. Physical Exam Const alert and no apparent distress General Appearance: cooperative, disheveled, frail and appears older than stated age Orientation / Consciousness: oriented to person and confused; Negative for oriented to place or oriented to time Nutritional Appearance: cachectic HEENT normocephalic Eyes conjunctivae normal and no scleral icterus General Eye: normal appearance of both eyes Neck supple General: trachea midline Resp normal respiratory effort Effort and Inspection: able to speak in complete sentences and symmetric chest movement Auscultation: clear to auscultation bilaterally and diminished lung sounds; Negative for rales, rhonchi or wheezes Cardio regular rate, regular rhythm, S1 normal heart sound and S2 normal heart sound GI normal to inspection, nondistended, normoactive bowel sounds GI Narrative: some mild abdominal distention but soft Auscultation: normoactive bowel sounds Extremity no clubbing, cyanosis or edema Skin Wound Narrative: Several small scabs to bilateral arms. Patient observed picking the scabs Neuro no focal motor deficits Neuro Narrative: Again, confused. Follows commands. Psych cooperative Attitude: calm Activity / Motor Behavior: appropriate eye contact Speech: normal speech Mood & Affect: flat affect Thought Process: confused Memory / Cognition: cognition impaired
[2021-01-17 16:34] LABS: Urine Chloride 119 mmol/L (Not Establ.); Urine Sodium 115 mmol/L (Not Establ.)
[2021-01-17 16:51] LABS: Amphetamine Urine VISTA NEGATIVE (<1000 ng/mL); Barbiturate Urine VISTA NEGATIVE (< 200 ng/mL); Benzodiazepine Urine VISTA NEGATIVE (< 200 ng/mL); Cocaine Urine VISTA NEGATIVE (< 300 ng/mL); Ecstacy Urine VISTA NEGATIVE (< 500 ng/mL); Methadone Urine VISTA NEGATIVE (< 300 ng/mL); PCP Urine VISTA NEGATIVE (< 25 ng/mL); THC Urine VISTA NEGATIVE (< 50 ng/mL); Vista UDS pH Range 5
[2021-01-17] MEDS: Ceftriaxone 1 GM/50 ML BAG IV (22:28)
[2021-01-18] VITALS (20 sets, daily range): BP systolic 83–130; BP diastolic 53–92; PULSE 60–72; RESP 15–22; TEMP 36.1–37.3; O2SAT 98–100
[2021-01-18 04:05] LABS: Absolute Neutrophil Count 6.7 X10^3/uL (2.0-7.7); Basophil# 0.03 X10^3/uL; Basophil% 0.3 % (0-1); Eosinophil# 0.27 X10^3/uL; Hematocrit 34.6 % (40-54); Hemoglobin 11.6 g/dL (13.0-16.5); Lymphocyte % 14.3 % (19-41); Mean Corp Hgb Conc 33.5 g/dL (32-36); Mean Corpuscular Volume 107.5 fL (80-94); Mean Platelet Vol. 10.1 fl (6.2-12.0); Monocyte# 0.73 X10^3/uL; NRBC Flagged by Analyzer 0 % (0-5); Neutrophil # 6.71 X10^3/uL (2.7-7.7); Neutrophil % 73.6 % (47-70); POSITIVE MORPHOLOGY YES; Platelet Count 227 K/mm3 (150-450); RBC Distribution Width CV 13.8 % (11.6-14.6); RBC Distribution Width SD 54.4 fl (35.1-43.9); Red Blood Count 3.22 M/mm3 (4.6-6.2); White Blood Count 9.1 K/mm3 (4.4-11.0)
[2021-01-18 04:19] LABS: Albumin, Serum 2.3 g/dL (3.2-5.0); BUN 45 mg/dL (7-18); Calcium,Total 7.9 mg/dL (8.5-10.1); Chloride 125 mmol/L (98-107); Creatinine, Serum 1.55 mg/dL (0.70-1.30); EST Glomerular Filtration Rate 48 mL/min (>60); Est Glom Filt Rate - Afr Amer 58 mL/min (>60); Estimated Creatinine Clearance 31.52 ml/min; Glucose 73 mg/dL (74-106); Phosphorus 2.1 mg/dL (2.5-4.9); Potassium 3.9 mmol/L (3.5-5.1); Sodium Level 147 mmol/L (136-145)
[2021-01-18] MEDS: 0.9% Normal Saline 1,000 ML 150 ML IV (04:19)
[2021-01-18 04:30] LABS: Differential Indicated SCAN CRITERIA MET
[2021-01-18 05:34] LABS: Differential Comment SCANNED
--- NOTE | 2021-01-18 07:43 | PN.CC_ITS ---
Assessment & Plan Assessment/Plan (1) Acute kidney injury: PLAN: RECOMMENDATIONS: 1. Continue antimicrobials while awaiting infectious work-up. If cultures are negative tomorrow, antibiotics can be discontinued. 2. Given the hypernatremia and hyperchloremia, will transition to D5W and de crease infusion rate. 3. Encourage incentive spirometer use and mobilize patient as tolerated. 4. Dietary advancement per speech therapy. 5. Continue Keppra per home regimen. IMPRESSIONS: 1. Hypotension Likely secondary to intravascular volume depletion in the setting of poor p.o. intake and concurrent use of antihypertensive medications. The patient has been adequately volume resuscitated and appears to be hemodynamically stable at this time. We will continue to hold antihypertensives accordingly. While the patient may have an underlying urinary tract source of infection, he does not appear to be overtly septic. 2. Encephalopathy Likely metabolic in etiology and related to uremia in the setting of TYREE coupled with possible urinary tract source of infection. The patient does remain somewhat confused, but is unclear what his actual baseline is. In addition, he does have a history of chronic alcohol dependency, which is also likely contributing to his current mental state. 3. Acute kidney injury/anion gap metabolic acidosis Improving. Likely prerenal in etiology and related to intravascular volume depletion, coupled with concurrent use of antihypertensives and diuretics on an outpatient basis. Nephrology is following. Renal ultrasound is unremarkable. Creatinine is improving with volume expansion. Plan to continue supportive measures. 4. History of alcohol and tobacco dependency Smoking cessation counseling was provided. He will be continued on thiamine and folate per the alcohol withdrawal protocol. He will be monitored for any signs or symptoms of acute alcohol withdrawal. 5. Glioblastoma multiform/history of epilepsy Continue baseline outpatient antiepileptic regimen. The patient should follow- up with his oncologist following discharge regarding future plan of care. 6. Hypertension/hyperlipidemia/GERD/poor medical compliance Complicates care, management, recovery and prognosis. Continue to hold antihypertensives for now. Physical therapy to work with the patient. This note was generated with [employer] dictation software. It may contain incorrect words, spelling, and punctuation that were not noted in checking the note before signing. Subjective Subjective The patient was seen and examined at the bedside this morning. Events from the last 24 hours have been reviewed. The patient is currently afebrile, hemodynamically stable and maintaining appropriate oxygen saturations on room air. No issues were noted by the overnight nursing staff. Although the patient remains somewhat confused this morning, he is without any specific complaints. The patient is currently documented to be overall net +6.8 L for the [facility]. His creatinine has improved to 1.5 this morning. Sodium and chloride have increased. Serum bicarbonate remains stable at 15. Objective Data Objective Data The patient's most recent lab work, culture data and imaging studies have all been personally reviewed. Blood and urine cultures have not demonstrated any g rowth to date. Vital Signs: Vital Signs Temp Pulse Resp BP Pulse Ox 98.6 F 65 20 H 91/59 L 99 01/18/21 07:00 01/18/21 07:07 01/18/21 07:00 01/18/21 07:00 01/18/21 07:26 Oxygen Delivery Method Room Air Weight: 52.7 kg Body Mass Index (BMI) 16.2 Intake & Output: Intake and Output for Last 24 Hours 01/16/21 01/17/21 01/18/21 23:59 23:59 23:59 Intake Total 3157.5 / 3157.5 4457.5 / 4457.5 1000 / 1000 Output Total 1355 / 1355 425 / 425 Balance 3157.5 / 3127.5 3102.5 / 3102.5 575 / 575 Medical Nutrition Assessment Dietitian: Nutrition Therapy Diagnosis Start: 01/17/21 10:57 Freq: Status: Active Protocol: Document 01/17/21 11:13 (Rec: 01/17/21 11:13 [id number]) Nutrition Malnutrition Evidence of Malnutrition Exists Yes Malnutrition (severe): Chronic Evidenced By Suboptimal Energy Intake ( Severe),Weight Loss (Severe), Physical Changes (Severe) Clinical Problem Chronic Disease or Condition Related Malnutrition Etiology chronic, severe malnutrition r /t inadequate energy intake d/ t decreased appetite, poor dentition w/ increased nutrient needs d/t glioblastoma Signs/Symptoms as evidenced by unintentional wt loss of 36.6#/26% <1 year; estimated energy intake meeting <50% of estimated nutritional needs x 4 months; severe muscle wasting/fat loss evident upon exam Status Active Problem Recommendation Dietitian Recommendations/Changes regular diet, consistency per TELE[employer]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 Fortified foods and supplements w/ meals. Recommend close monitoring of electrolytes given risk for refeeding syndrome. Will monitor renal function/PO intake and adjust diet parameters as indicated. Lab / Micro Data Attestation: I reviewed the patient's lab results. Result Diagrams: 01/18/21 03:58 01/18/21 03:58 Labs: Laboratory Results - last 24 hr 01/17/21 05:02: Sodium 144, Potassium 3.9, Chloride 120 H, Carbon Dioxide 15.0 L , Anion Gap 9, BUN 70 H, Creatinine 5.10 H, Estim Creat Clear Calc 9.58, Est GFR (MDRD) Af Amer 15 L, Est GFR (MDRD) Non-Af 12 L, BUN/Creatinine Ratio 13.7, Glucose 78, Calcium 8.0 L, Total Bilirubin 0.20, AST 48 H, ALT 63 H, Alkaline Phosphatase 48, Total Protein 5.9 L, Albumin 2.5 L, Globulin 3.4, Albumin/Globulin Ratio 0.7 L 01/17/21 09:25: Procalcitonin 0.29 H 01/17/21 09:25: Ethyl Alcohol 3.0 01/17/21 16:14: Urine Opiates Screen NEGATIVE, Urine Methadone Screen NEGATIVE, Ur Barbiturates Screen NEGATIVE, Ur Phencyclidine Scrn NEGATIVE, Ur Amphetamines Screen NEGATIVE, U Methamphetamin-MDMA NEGATIVE, U Benzodiazepines Scrn NEGATIVE, Urine Cocaine Screen NEGATIVE, U Cannabinoids Screen NEGATIVE, Ur Drug Screen Comment 01/17/21 16:14: Ur Random Sodium 115, Urine Creatinine 62.90, Urine Potassium 6.0, Urine Chloride 119 01/18/21 03:30: Sodium Cancelled, Potassium Cancelled, Chloride Cancelled, Carb on Dioxide Cancelled, BUN Cancelled, Creatinine Cancelled, Estim Creat Clear Calc Cancelled, Est GFR (MDRD) Af Amer Cancelled, Est GFR (MDRD) Non-Af Cancelled, BUN/Creatinine Ratio Cancelled, Glucose Cancelled, Calcium Cancelled, Phosphorus Cancelled, Albumin Cancelled 01/18/21 03:30: WBC Cancelled, Corrected WBC Cancelled, RBC Cancelled, Hgb Cancelled, Hct Cancelled, MCV Cancelled, MCH Cancelled, MCHC Cancelled, RDW Std Deviation Cancelled, RDW Coeff of Serena Cancelled, Plt Count Cancelled, MPV Cancelled, Immature Gran % (Auto) Cancelled, Neut % (Auto) Cancelled, Lymph % (Auto) Cancelled, [place] % (Auto) Cancelled, Eos % (Auto) Cancelled, Baso % (Auto) Cancelled, Absolute Neuts (auto) Cancelled, Absolute Lymphs (auto) Cancelled, Total Counted Cancelled, Neutrophils % (Manual) Cancelled, Band Neutrophils % Cancelled, Lymphocytes % (Manual) Cancelled, Monocytes % (Manual) Cancelled, Eosinophils % (Manual) Cancelled, Basophils % (Manual) Cancelled, Metamyelocytes % Cancelled, Myelocytes % Cancelled, Promyelocytes % Cancelled, Blast Cells % Cancelled, Plasma Cell % (Manual) Cancelled, Other Cells % Cancelled, Nucleated RBC % Cancelled, Nucleated RBCs/100 WBC Cancelled, Differential Comment Cancelled, Diff Path Review Cancelled, Hypersegmented Neuts Cancelled, Atypical Lymphocytes Cancelled, Reactive Lymphocytes Cancelled, Smudge Cells Cancelled, Toxic Granulation Cancelled, Toxic Vacuolation Cancelled, Dohle Bodies Cancelled, Derrick Rods Cancelled, Platelet Estimate Cancelled, Plt Morphology Comment Cancelled, RBC Morphology Cancelled, Polychromasia Cancelled, Hypochromasia Cancelled, Poikilocytosis Cancelled, Basophilic Stippling Cancelled, Anisocytosis Cancelled, Microcytosis Cancelled, Macrocytosis Cancelled, Spherocytes Cancelled, Sickle Cells Cancelled, Target Cells Cancelled, Tear Drop Cells Cancelled, Ovalocytes Cancelled, Stomatocytes Cancelled, Fish[place] Bodies Cancelled, Thelma Cells Cancelled, Bite Cells Cancelled, Crenated Cell Cancelled, Acanthocytes (Spur) Cancelled, Rouleaux Cancelled, Schistocytes Cancelled 01/18/21 03:58: WBC 9.1, RBC 3.22 L, Hgb 11.6 L, Hct 34.6 L, MCV 107.5 H, MCH 36.0 H, MCHC 33.5, RDW Std Deviation 54.4 H, RDW Coeff of Serena 13.8, Plt Count 227, MPV 10.1, Immature Gran % (Auto) 0.800, Neut % (Auto) 73.6 H, Lymph % (Auto) 14.3 L, [place] % (Auto) 8.0, Eos % (Auto) 3.0, Baso % (Auto) 0.3, Absolute Neuts (auto) 6.7, Absolute Lymphs (auto) 1.30, Nucleated RBC % 0, Differential Comment SCANNED 01/18/21 03:58: Sodium 147 H, Potassium 3.9, Chloride 125 H, Carbon Dioxide 15.0 L, BUN 45 H, Creatinine 1.55 H, Estim Creat Clear Calc 31.52, Est GFR (MDRD) Af Amer 58 L, Est GFR (MDRD) Non-Af 48 L, BUN/Creatinine Ratio 29.0 H, Glucose 73 L , Calcium 7.9 L, Phosphorus 2.1 L, Albumin 2.3 L Radiography Diagnostic Testing: Radiology Impression Renal Ultrasound 01/17/21 05:55 IMPRESSION: Negative renal ultrasound. at 0913 Reported and signed by: Isaiah Goetz MD Electronically Signed: Isaiah Goetz MD at 9:12 EDT Tel , Service support , Physical Exam Const alert Constitutional Narrative: Appears older than stated age. A bit unkempt in appearance. General Appearance: cooperative Orientation / Consciousness: confused HEENT normocephalic and head/scalp atraumatic Eyes PERRL and EOMs intact bilaterally Neck supple General: trachea midline Chest inspection of chest normal Resp Auscultation: diminished lung sounds; Negative for rales, rhonchi or wheezes Cardio regular rate and regular rhythm GI normal to inspection, nondistended, normoactive bowel sounds Extremity General Extremity: clubbing; Negative for edema Skin no rashes or lesions noted Neuro no focal motor deficits Psych cooperative and affect normal Charges/Coding Visit Charges Inpatient E&M: 15589 Subs Hosp L2
[2021-01-18] MEDS: Folic Acid 1 MG Tablet PO (08:33)
[2021-01-18] MEDS: Heparin Injection (Vial) 5,000 UNIT/ML VIAL 5000 UNIT SC ×2 (11:07→21:15)
[2021-01-18] MEDS: Menthol/Lanolin/Calamine/Znox 113 GM Tube 1 APPLIC TOPICAL ×2 (11:07→21:15)
[2021-01-18] MEDS: Aspirin E.C. 81 MG Tablet PO (11:07)
--- NOTE | 2021-01-18 12:00 | PCM.PN.REN ---
Subjective Subjective Following for acute kidney injury. The patient had loose bowel movement overnight and large loose bowel movement earlier today. There is no chest pain, shortness of breath, or nausea. Objective Data Objective Data Vital Signs: Vital Signs Temp Pulse Resp BP Pulse Ox 98.5 F 65 15 115/61 100 01/18/21 08:00 01/18/21 08:00 01/18/21 08:00 01/18/21 08:00 01/18/21 08:00 Oxygen Delivery Method Room Air Weight: 52.7 kg Body Mass Index (BMI) 16.2 Intake & Output: Intake and Output for Last 24 Hours 01/16/21 01/17/21 01/18/21 23:59 23:59 23:59 Intake Total 3157.5 / 3157.5 4457.5 / 4457.5 1862.5 / 1862.5 Output Total 1355 / 1355 1025 / 1025 Balance 3157.5 / 3127.5 3102.5 / 3102.5 837.5 / 837.5 Medical Nutrition Assessment Dietitian: Nutrition Therapy Diagnosis Start: 01/17/21 10:57 Freq: Status: Active Protocol: Document 01/18/21 10:24 AG (Rec: 01/18/21 10:24 AG [id number]) Nutrition Malnutrition Evidence of Malnutrition Exists Yes Malnutrition (severe): Chronic Evidenced By Suboptimal Energy Intake ( Severe),Weight Loss (Severe), Physical Changes (Severe) Clinical Problem Chronic Disease or Condition Related Malnutrition Etiology chronic, severe malnutrition r /t inadequate energy intake d/ t decreased appetite, poor dentition w/ increased nutrient needs d/t glioblastoma Signs/Symptoms as evidenced by unintentional wt loss of 36.6#/26% <1 year; estimated energy intake meeting <50% of estimated nutritional needs x 4 months; severe muscle wasting/fat loss evident upon exam Status Active Problem Recommendation Dietitian Recommendations/Changes Regular diet, magic cup w/ meals for additional calories/ protein if consumed. Will add 120mL ensure enlive 4x/day. Recommend close monitoring of electrolytes given risk for refeeding syndrome. Lab / Micro Data Result Diagrams: 01/18/21 03:58 01/18/21 03:58 Labs: Laboratory Results - last 24 hr 01/17/21 16:14: Urine Opiates Screen NEGATIVE, Urine Methadone Screen NEGATIVE, Ur Barbiturates Screen NEGATIVE, Ur Phencyclidine Scrn NEGATIVE, Ur Amphetamines Screen NEGATIVE, U Methamphetamin-MDMA NEGATIVE, U Benzodiazepines Scrn NEGATIVE, Urine Cocaine Screen NEGATIVE, U Cannabinoids Screen NEGATIVE, Ur Drug Screen Comment 01/17/21 16:14: Ur Random Sodium 115, Urine Creatinine 62.90, Urine Potassium 6.0, Urine Chloride 119 01/18/21 03:30: Sodium Cancelled, Potassium Cancelled, Chloride Cancelled, Carbon Dioxide Cancelled, BUN Cancelled, Creatinine Cancelled, Estim Creat Clear Calc Cancelled, Est GFR (MDRD) Af Amer Cancelled, Est GFR (MDRD) Non-Af Cancelled, BUN/Creatinine Ratio Cancelled, Glucose Cancelled, Calcium Cancelled, Phosphorus Cancelled, Albumin Cancelled 01/18/21 03:30: WBC Cancelled, Corrected WBC Cancelled, RBC Cancelled, Hgb Cancelled, Hct Cancelled, MCV Cancelled, MCH Cancelled, MCHC Cancelled, RDW Std Deviation Cancelled, RDW Coeff of Serena Cancelled, Plt Count Cancelled, MPV Cancelled, Immature Gran % (Auto) Cancelled, Neut % (Auto) Cancelled, Lymph % (Auto) Cancelled, Major % (Auto) Cancelled, Eos % (Auto) Cancelled, Baso % (Auto) Cancelled, Absolute Neuts (auto) Cancelled, Absolute Lymphs (auto) Cancelled, Total Counted Cancelled, Neutrophils % (Manual) Cancelled, Band Neutrophils % Cancelled, Lymphocytes % (Manual) Cancelled, Monocytes % (Manual) Cancelled, Eosinophils % (Manual) Cancelled, Basophils % (Manual) Cancelled, Metamyelocytes % Cancelled, Myelocytes % Cancelled, Promyelocytes % Cancelled, Blast Cells % Cancelled, Plasma Cell % (Manual) Cancelled, Other Cells % Cancelled, Nucleated RBC % Cancelled, Nucleated RBCs/100 WBC Cancelled, Differential Comment Cancelled, Diff Path Review Cancelled, Hypersegmented Neuts Cancelled, Atypical Lymphocytes Cancelled, Reactive Lymphocytes Cancelled, Smudge Cells Cancelled, Toxic Granulation Cancelled, Toxic Vacuolation Cancelled, Dohle Bodies Cancelled, Derrick Rods Cancelled, Platelet Estimate Cancelled, Plt Morphology Comment Cancelled, RBC Morphology Cancelled, Polychromasia Cancelled, Hypochromasia Cancelled, Poikilocytosis Cancelled, Basophilic Stippling Cancelled, Anisocytosis Cancelled, Microcytosis Cancelled, Macrocytosis Cancelled, Spherocytes Cancelled, Sickle Cells Cancelled, Target Cells Cancelled, Tear Drop Cells Cancelled, Ovalocytes Cancelled, Stomatocytes Cancelled, Fish-[place] [address] Bodies Cancelled, [place] Cells Cancelled, Bite Cells Cancelled, Crenated Cell Cancelled, Acanthocytes (Spur) Cancelled, Rouleaux Cancelled, Schistocytes Cancelled 01/18/21 03:58: WBC 9.1, RBC 3.22 L, Hgb 11.6 L, Hct 34.6 L, MCV 107.5 H, MCH 36.0 H, MCHC 33.5, RDW Std Deviation 54.4 H, RDW Coeff of Serena 13.8, Plt Count 227, MPV 10.1, Immature Gran % (Auto) 0.800, Neut % (Auto) 73.6 H, Lymph % (Auto) 14.3 L, Major % (Auto) 8.0, Eos % (Auto) 3.0, Baso % (Auto) 0.3, Absolute Neuts (auto) 6.7, Absolute Lymphs (auto) 1.30, Nucleated RBC % 0, Differential Comment SCANNED 01/18/21 03:58: Sodium 147 H, Potassium 3.9, Chloride 125 H, Carbon Dioxide 15.0 L, BUN 45 H, Creatinine 1.55 H, Estim Creat Clear Calc 31.52, Est GFR (MDRD) Af Amer 58 L, Est GFR (MDRD) Non-Af 48 L, BUN/Creatinine Ratio 29.0 H, Glucose 73 L, Calcium 7.9 L, Phosphorus 2.1 L, Albumin 2.3 L Micro: Microbiology 01/16/21 23:40 Urine Catheter - Catheter Urine Culture - Preliminary Culture exhibits no growth. Physical Exam Narrative General: NAD. HEENT: Normocephalic, atraumatic. Mucous membrane dry. Neck: Supple no JVD. Lungs: Clear to auscultation bilaterally. Abdomen: Normal bowel sounds, soft, nontender, no guarding or rebound. Extremity: No lower extremity edema. No clubbing or cyanosis. Assessment & Plan Assessment/Plan (1) Acute kidney injury: PLAN: The patient has no prior history of chronic kidney disease. Serum creatinine was 0.8 mg/dL on 01/06/2021. TYREE is secondary to prerenal azotemia which may have progressed to ischemic ATN. The patient was also taking lisinopril and spironolactone prior to admission which may have exacerbated volume depletion. Low suspicion for other causes of TYREE at this point. Renal function has improved with IV fluid. Encourage oral intake. There is no need for kidney replacement therapy. Keep on IV fluid as we are doing. Recheck renal function panel again tomorrow morning. Current medications are reviewed and are appropriately dosed for his estimated creatinine clearance. (2) Hypernatremia: PLAN: Serum sodium is 147 mmol/L today. This is likely due to relative dehydration related to GI fluid loss. Since volume status is better and blood pressure is controlled, I agree with switching over to D5W. (3) Hypotension: PLAN: Improving. Hypotension was likely due to volume depletion. The patient is also being treated for possible infection until more data becomes available. I agree with holding lisinopril and spironolactone. Continue IV fluid as you are doing. (4) Metabolic acidosis: PLAN: The patient has non-anion gap metabolic acidosis even after accounting for hypoalbuminemia. Acidosis is likely due to TYREE and diarrhea. Recheck serum bicarbonate level again tomorrow. Hold off on additional bicarbonate supplementation since renal function is improving. (5) Glioblastoma multiforme of temporal lobe: PLAN: The patient was receiving radiation therapy prior to admission.
--- NOTE | 2021-01-18 12:22 | PN.HOSP_ITS ---
Subjective Subjective Patient seen and examined. He had no complaints and was resting comfortably in bed. Review of systems otherwise negative. He has remained hemodynamically stable. Objective Data Objective Data Vital Signs: Vital Signs Temp Pulse Resp BP Pulse Ox 98.5 F 66 15 115/61 100 01/18/21 08:00 01/18/21 11:01 01/18/21 08:00 01/18/21 08:00 01/18/21 08:00 Oxygen Delivery Method Room Air Weight: 116 lb 2.938 oz Body Mass Index (BMI) 16.2 Intake & Output: Intake and Output for Last 24 Hours 01/16/21 01/17/21 01/18/21 23:59 23:59 23:59 Intake Total 3157.5 / 3157.5 4457.5 / 4457.5 1862.5 / 1862.5 Output Total 1355 / 1355 1025 / 1025 Balance 3157.5 / 3127.5 3102.5 / 3102.5 837.5 / 837.5 Medical Nutrition Assessment Dietitian: Nutrition Therapy Diagnosis Start: 01/17/21 10:57 Freq: Status: Active Protocol: Document 01/18/21 10:24 AG (Rec: 01/18/21 10:24 AG [id number]) Nutrition Malnutrition Evidence of Malnutrition Exists Yes Malnutrition (severe): Chronic Evidenced By Suboptimal Energy Intake ( Severe),Weight Loss (Severe), Physical Changes (Severe) Clinical Problem Chronic Disease or Condition Related Malnutrition Etiology chronic, severe malnutrition r /t inadequate energy intake d/ t decreased appetite, poor dentition w/ increased nutrient needs d/t glioblastoma Signs/Symptoms as evidenced by unintentional wt loss of 36.6#/26% <1 year; estimated energy intake meeting <50% of estimated nutritional needs x 4 months; severe muscle wasting/fat loss evident upon exam Status Active Problem Recommendation Dietitian Recommendations/Changes Regular diet, magic cup w/ meals for additional calories/ protein if consumed. Will add 120mL ensure enlive 4x/day. Recommend close monitoring of electrolytes given risk for refeeding syndrome. Lab / Micro Data Result Diagrams: 01/18/21 03:58 01/18/21 03:58 Labs: Laboratory Results - last 24 hr 01/17/21 16:14: Urine Opiates Screen NEGATIVE, Urine Methadone Screen NEGATIVE, Ur Barbiturates Screen NEGATIVE, Ur Phencyclidine Scrn NEGATIVE, Ur Amphetamines Screen NEGATIVE, U Methamphetamin-MDMA NEGATIVE, U Benzodiazepines Scrn NEGATIVE, Urine Cocaine Screen NEGATIVE, U Cannabinoids Screen NEGATIVE, Ur Drug Screen Comment 01/17/21 16:14: Ur Random Sodium 115, Urine Creatinine 62.90, Urine Potassium 6.0, Urine Chloride 119 01/18/21 03:30: Sodium Cancelled, Potassium Cancelled, Chloride Cancelled, Carbon Dioxide Cancelled, BUN Cancelled, Creatinine Cancelled, Estim Creat Clear Calc Cancelled, Est GFR (MDRD) Af Amer Cancelled, Est GFR (MDRD) Non-Af Cancelled, BUN/Creatinine Ratio Cancelled, Glucose Cancelled, Calcium Cancelled, Phosphorus Cancelled, Albumin Cancelled 01/18/21 03:30: WBC Cancelled, Corrected WBC Cancelled, RBC Cancelled, Hgb Cancelled, Hct Cancelled, MCV Cancelled, MCH Cancelled, MCHC Cancelled, RDW Std Deviation Cancelled, RDW Coeff of Serena Cancelled, Plt Count Cancelled, MPV Cancelled, Immature Gran % (Auto) Cancelled, Neut % (Auto) Cancelled, Lymph % (Auto) Cancelled, [place] % (Auto) Cancelled, Eos % (Auto) Cancelled, Baso % (Auto) Cancelled, Absolute Neuts (auto) Cancelled, Absolute Lymphs (auto) Cancelled, Total Counted Cancelled, Neutrophils % (Manual) Cancelled, Band Neutrophils % Cancelled, Lymphocytes % (Manual) Cancelled, Monocytes % (Manual) Cancelled, Eosinophils % (Manual) Cancelled, Basophils % (Manual) Cancelled, Metamyelocytes % Cancelled, Myelocytes % Cancelled, Promyelocytes % Cancelled, Blast Cells % Cancelled, Plasma Cell % (Manual) Cancelled, Other Cells % Cancelled, Nucleated RBC % Cancelled, Nucleated RBCs/100 WBC Cancelled, Differential Comment Cancelled, Diff Path Review Cancelled, Hypersegmented Neuts Cancelled, Atypical Lymphocytes Cancelled, Reactive Lymphocytes Cancelled, Smudge Cells Cancelled, Toxic Granulation Cancelled, Toxic Vacuolation Cancelled, Dohle Bodies Cancelled, Derrick Rods Cancelled, Platelet Estimate Cancelled, Plt Morphology Comment Cancelled, RBC Morphology Cancelled, Polychromasia Cancelled, Hypochromasia Cancelled, Poikilocytosis Cancelled, Basophilic Stippling Cancelled, Anisocytosis Cancelled, Microcytosis Cancelled, Macrocytosis Ca ncelled, Spherocytes Cancelled, Sickle Cells Cancelled, Target Cells Cancelled, Tear Drop Cells Cancelled, Ovalocytes Cancelled, Stomatocytes Cancelled, Fish- [place] Bodies Cancelled, [place] Cells Cancelled, Bite Cells Cancelled, Crenated Cell Cancelled, Acanthocytes (Spur) Cancelled, Rouleaux Cancelled, Schistocytes Cancelled 01/18/21 03:58: WBC 9.1, RBC 3.22 L, Hgb 11.6 L, Hct 34.6 L, MCV 107.5 H, MCH 36.0 H, MCHC 33.5, RDW Std Deviation 54.4 H, RDW Coeff of Serena 13.8, Plt Count 227, MPV 10.1, Immature Gran % (Auto) 0.800, Neut % (Auto) 73.6 H, Lymph % (Auto) 14.3 L, [place] % (Auto) 8.0, Eos % (Auto) 3.0, Baso % (Auto) 0.3, Absolute Neuts (auto) 6.7, Absolute Lymphs (auto) 1.30, Nucleated RBC % 0, Differential Comment SCANNED 01/18/21 03:58: Sodium 147 H, Potassium 3.9, Chloride 125 H, Carbon Dioxide 15.0 L, BUN 45 H, Creatinine 1.55 H, Estim Creat Clear Calc 31.52, Est GFR (MDRD) Af Amer 58 L, Est GFR (MDRD) Non-Af 48 L, BUN/Creatinine Ratio 29.0 H, Glucose 73 L , Calcium 7.9 L, Phosphorus 2.1 L, Albumin 2.3 L Micro: Microbiology 01/16/21 23:40 Urine Catheter - Catheter Urine Culture - Preliminary Culture exhibits no growth. Physical Exam Const alert, oriented x3 and no apparent distress General Appearance: uncooperative and disheveled Orientation / Consciousness: confused and lethargic Exam Limitations: no limitations and altered mental status Nutritional Appearance: cachectic HEENT normocephalic, head/scalp atraumatic and moist oral mucous membranes Head and Scalp: normocephalic Eyes PERRL, EOMs intact bilaterally, conjunctivae normal and no scleral icterus Neck no lymphadenopathy, supple and no JVD General: trachea midline Resp normal respiratory effort, normal air movement, no retractions, no use of accessory muscles and clear to auscultation bilaterally Effort and Inspection: able to speak in complete sentences Cardio regular rate, regular rhythm, S1 normal heart sound, S2 normal heart sound, no murmurs and peripheral pulses 2+ throughout GI normal to inspection, nondistended, normoactive bowel sounds, soft to palpation, non-tender and non-distended Extremity normal to inspection, full ROM, normal capillary refill and no clubbing, cyanosis or edema General Extremity: no tenderness to palpation of joints or extremities Skin no rashes or lesions noted General Skin Exam: no breakdown and turgor normal Lesions: no lesions Rashes: no rashes Neuro oriented x3, CN's II-XII intact bilaterally, moves all extremities, no focal motor deficits and no sensory deficits noted Sensorium / Orientation: awake and alert Speech: speech normal Motor Exam: general weakness Psych affect normal Attitude: uncooperative Activity / Motor Behavior: restless Thought Process: disorganized and confused Assessment & Plan Assessment/Plan (1) Acute kidney injury: (2) Urinary tract infection: QUALIFIERS: Urinary tract infection type: site unspecified Hematuria presence: without hematuria Qualified Code(s): N39.0 - Urinary tract infection, site not specified PLAN: #UTI * urine cultures show no growth so far * blood cultures pending * on IV ceftriaxone * continue gentle hydration with IVF * #TYREE * Cr was 7.86 on admission, now down to 1.55 today * nephrology on board. * patient making urine; renal USG showed normal kidneys * trend Cr * nephrotoxic meds on hold * #Non anion gap metabolic acidosis * bicarb is 15; likely due to TYREE * will trend for resolution as TYREE has now resolved. * #Hypotension: resolved. #Hypertension: resume carvedilol; continue holding lisinopril and spironolactone. #History of seizures * on keppra * #history of glioblastoma multiforme * s/p resection with chemoradiation * follow up with oncology on outpatient basis * #Severe protein calorie malnutrition * BMI is 16. * nutrition on board #History of alcohol dependence * not in withdrawal now. Will monitor * DVT prohylaxis: lovenox Code status: full code Disposition: transfer out of ICU to PCU Charges/Coding Visit Charges Inpatient E&M: 47948 Subs Hosp L2
[2021-01-18] MEDS: Calcium Carb/Vitamin D 1 TABLET Tablet PO (16:13)
--- NOTE | 2021-01-18 17:59 | CM.ED ---
SW Note Referral Source: CM Referral Reason: Possible SNF placement SW met with patient. He reports he lives in [place] but lives in [place] and then reports he is moving to [place] as his dad and brother reside there. SW talked to patient about how he may need rehab at discharge and patient said that he is going home. Patient appears to be confused. Patient was provided with SNF for [place] and [facility]. SW remains available if needs arise. Plan: To be determined Zakia HOROWITZ
--- NOTE | 2021-01-18 21:44 | NURSING ---
Report called to Hayley Hernandez at this time.
--- NOTE | 2021-01-18 21:58 | NURSING ---
Attempted to call pts significant other to make her aware of pts transfer to pcu at this time. Significant other did not answer phone at this time.
[2021-01-18] MEDS: Ceftriaxone 1 GM/50 ML BAG IV (22:18)
[2021-01-19] VITALS (9 sets, daily range): BP systolic 111–141; BP diastolic 67–93; PULSE 58–72; RESP 16–20; TEMP 36.5–36.8; O2SAT 98–100
[2021-01-19 06:37] LABS: Absolute Lymphocyte Count 1.23 X10^3/uL (0.83-4.51); Absolute Neutrophil Count 5.2 X10^3/uL (2.0-7.7); Basophil# 0.03 X10^3/uL; Basophil% 0.4 % (0-1); Eosinophil# 0.33 X10^3/uL; Eosinophils% 4.3 % (0-5); Hematocrit 30.3 % (40-54); Hemoglobin 10.2 g/dL (13.0-16.5); Lymphocyte # 1.23 X10^3/ul (0.83-4.51); Lymphocyte % 16.2 % (19-41); Mean Corp Hgb Conc 33.7 g/dL (32-36); Mean Corpuscular Hgb 35.7 pg (27.0-32.0); Mean Corpuscular Volume 105.9 fL (80-94); Mean Platelet Vol. 10.6 fl (6.2-12.0); Monocyte# 0.62 X10^3/uL; Monocyte% 8.2 % (0-10); NRBC Flagged by Analyzer 0 % (0-5); Neutrophil # 5.24 X10^3/uL (2.7-7.7); Neutrophil % 69.1 % (47-70); Platelet Count 224 K/mm3 (150-450); Red Blood Count 2.86 M/mm3 (4.6-6.2); White Blood Count 7.6 K/mm3 (4.4-11.0)
[2021-01-19 07:13] LABS: Albumin, Serum 1.9 g/dL (3.2-5.0); BUN 22 mg/dL (7-18); BUN/Creat Ratio 30.8 RATIO (10-20); Calcium,Total 7.8 mg/dL (8.5-10.1); Chloride 122 mmol/L (98-107); Creatinine, Serum 0.72 mg/dL (0.70-1.30); EST Glomerular Filtration Rate 117 mL/min (>60); Est Glom Filt Rate - Afr Amer 142 mL/min (>60); Estimated Creatinine Clearance 76.68 ml/min; Glucose 98 mg/dL (74-106); Phosphorus 1.5 mg/dL (2.5-4.9); Potassium 3.2 mmol/L (3.5-5.1); Sodium Level 145 mmol/L (136-145)
[2021-01-19] MEDS: Multivitamins,Ther W-Minerals Tablet 1 TABLET PO (09:56)
[2021-01-19] MEDS: Aspirin E.C. 81 MG Tablet PO (09:56)
[2021-01-19] MEDS: Heparin Injection (Vial) 5,000 UNIT/ML VIAL 5000 UNIT SC ×2 (09:56→21:18)
[2021-01-19] MEDS: Folic Acid 1 MG Tablet PO (09:56)
[2021-01-19] MEDS: Potassium Chloride Oral Tablet 20 MEQ 40 MEQ PO (09:57)
--- NOTE | 2021-01-19 10:41 | PN.RENAL_ITS ---
Subjective Subjective Following for acute kidney injury, acidosis, and electrolytes abnormality. The patient denies diarrhea today. He had loose bowel movement the night of 01/17/2021 and morning of 01/18/2021. He denies chest pain, shortness of breath at rest, or nausea. Objective Data Objective Data Vital Signs: Vital Signs Temp Pulse Resp BP Pulse Ox 98.3 F 58 L 16 111/71 98 01/19/21 04:05 01/19/21 07:00 01/19/21 04:05 01/19/21 04:05 01/19/21 08:07 Oxygen Delivery Method Room Air Weight: 53 kg Body Mass Index (BMI) 16.2 Intake & Output: Intake and Output for Last 24 Hours 01/17/21 01/18/21 01/19/21 23:59 23:59 23:59 Intake Total 4457.5 / 4457.5 3203.75 / 3203.75 Output Total 1355 / 1355 1525 / 1525 Balance 3102.5 / 3102.5 1678.75 / 1678.75 Medical Nutrition Assessment Dietitian: Nutrition Therapy Diagnosis Start: 01/17/21 10:57 Freq: Status: Active Protocol: Document 01/18/21 10:24 AG (Rec: 01/18/21 10:24 AG [id number]) Nutrition Malnutrition Evidence of Malnutrition Exists Yes Malnutrition (severe): Chronic Evidenced By Suboptimal Energy Intake ( Severe),Weight Loss (Severe), Physical Changes (Severe) Clinical Problem Chronic Disease or Condition Related Malnutrition Etiology chronic, severe malnutrition r /t inadequate energy intake d/ t decreased appetite, poor dentition w/ increased nutrient needs d/t glioblastoma Signs/Symptoms as evidenced by unintentional wt loss of 36.6#/26% <1 year; estimated energy intake meeting <50% of estimated nutritional needs x 4 months; severe muscle wasting/fat loss evident upon exam Status Active Problem Recommendation Dietitian Recommendations/Changes Regular diet, magic cup w/ meals for additional calories/ protein if consumed. Will add 120mL ensure enlive 4x/day. Recommend close monitoring of electrolytes given risk for refeeding syndrome. Lab / Micro Data Result Diagrams: 01/19/21 05:12 01/19/21 05:12 Labs: Laboratory Results - last 24 hr 01/19/21 05:12: WBC 7.6, RBC 2.86 L, Hgb 10.2 L, Hct 30.3 L, MCV 105.9 H, MCH 35.7 H, MCHC 33.7, RDW Std Deviation 54.0 H, RDW Coeff of Serena 14.0, Plt Count 224, MPV 10.6, Immature Gran % (Auto) 1.800 H, Neut % (Auto) 69.1, Lymph % (Auto) 16.2 L, [place] % (Auto) 8.2, Eos % (Auto) 4.3, Baso % (Auto) 0.4, Absolute Neuts (auto) 5.2, Absolute Lymphs (auto) 1.23, Nucleated RBC % 0 01/19/21 05:12: Sodium 145, Potassium 3.2 L, Chloride 122 H, Carbon Dioxide 15.0 L, BUN 22 H, Creatinine 0.72, Estim Creat Clear Calc 76.68, Est GFR (MDRD) Af Amer 142, Est GFR (MDRD) Non-Af 117, BUN/Creatinine Ratio 30.8 H, Glucose 98, Calcium 7.8 L, Phosphorus 1.5 L, Albumin 1.9 L Micro: Microbiology 01/16/21 23:40 Urine Catheter - Catheter Urine Culture - Final Culture exhibits no growth. Physical Exam Narrative General: NAD. HEENT: Normocephalic, atraumatic. Mucous membrane dry. Neck: Supple no JVD. Lungs: Clear to auscultation bilaterally. Abdomen: Normal bowel sounds, soft, nontender, no guarding or rebound. Extremity: No lower extremity edema. No clubbing or cyanosis. Assessment & Plan Assessment/Plan (1) Acute kidney injury: PLAN: The patient has no prior history of chronic kidney disease. Serum creatinine was 0.8 mg/dL on 01/06/2021. TYREE is secondary to prerenal azotemia which has resolved. The patient was also taking lisinopril and spironolactone prior to admission which may have exa cerbated hypotension and prerenal TYREE. Low suspicion for other causes of TYREE at this point. Renal function has returned to normal with IV fluid. Agree with stopping IV fluid at this point. Encourage oral intake. There is no need for kidney replacement therapy. I would hold lisinopril and spironolactone until blood pressure is better than the current levels. Recheck renal function panel again tomorrow morning. Current medications are reviewed and are appropriately dosed for his estimated creatinine clearance. (2) Hypernatremia: PLAN: Serum sodium is 145 mmol/L today. Prior hyponatremia was likely due to relative dehydration related to GI fluid loss. The patient was treated with D5W yesterday with improvement in serum sodium. I encouraged the patient to drink when he is thirsty. (3) Hypokalemia: PLAN: Suspect that hypokalemia is due to GI loss. Magnesium level was normal on 01/16/2021. However, I will recheck both magnesium level and potassium level again tomorrow. We will treat with potassium phosphate infusion today. (4) Hypophosphatemia: PLAN: Hypophosphatemia may be due to refeeding. The patient is quite cachectic and he did receive D5W infusion yesterday. We will replace phosphorus deficit with potassium phosphate infusion. (5) Metabolic acidosis: PLAN: The patient has non-anion gap metabolic acidosis even after accounting for hypoalbuminemia. Acidosis is likely due to TYREE and diarrhea. Serum bicarbonate level has remained low but stable over the last 3 days. Recheck serum bicarbonate level again tomorrow. Hold off on additional bicarbonate supplementation since renal function is improving and the patient is hypokalemic. (6) Hypotension: PLAN: Improved. Hypotension was likely due to volume depletion. The patient is also being treated for possible infection until more data becomes available. Cultures are negative so far. I agree with holding lisinopril and spironolactone since blood pressure is still on the lower side. Encouraged oral intake (7) Glioblastoma multiforme of temporal lobe: PLAN: The patient was receiving radiation therapy prior to admission.
[2021-01-19] MEDS: Menthol/Lanolin/Calamine/Znox 113 GM Tube 1 APPLIC TOPICAL ×2 (11:06→21:18)
[2021-01-19] MEDS: Calcium Carb/Vitamin D 1 TABLET Tablet PO (12:41)
--- NOTE | 2021-01-19 15:12 | PN.HOSP_ITS ---
Subjective Subjective Patient seen and examined. He had no complaints and an uneventful night. Patient tells me that he thinks he can take care of himself. However he is very weak and per discussion with his nurse, he was unable to do very well with therapy. I am therefore very concerned about his safety at home and I told him that I am uncomfortable discharging him home. Review of systems otherwise negative. He has otherwise remained hemodynamically stable. Objective Data Objective Data Vital Signs: Vital Signs Temp Pulse Resp BP Pulse Ox 98.1 F 59 L 16 137/77 H 100 01/19/21 11:17 01/19/21 11:17 01/19/21 11:17 01/19/21 11:17 01/19/21 11:17 Oxygen Delivery Method Room Air Weight: 116 lb 13.52 oz Body Mass Index (BMI) 16.2 Intake & Output: Intake and Output for Last 24 Hours 01/17/21 01/18/21 01/19/21 23:59 23:59 23:59 Intake Total 4457.5 / 4457.5 3203.75 / 3203.75 1327.5 / 1327.5 Output Total 1355 / 1355 1525 / 1525 Balance 3102.5 / 3102.5 1678.75 / 1678.75 1327.5 / 1327.5 Medical Nutrition Assessment Dietitian: Nutrition Therapy Diagnosis Start: 01/17/21 10:57 Freq: Status: Active Protocol: Document 01/18/21 10:24 AG (Rec: 01/18/21 10:24 [id number]) Nutrition Malnutrition Evidence of Malnutrition Exists Yes Malnutrition (severe): Chronic Evidenced By Suboptimal Energy Intake ( Severe),Weight Loss (Severe), Physical Changes (Severe) Clinical Problem Chronic Disease or Condition Related Malnutrition Etiology chronic, severe malnutrition r /t inadequate energy intake d/ t decreased appetite, poor dentition w/ increased nutrient needs d/t glioblastoma Signs/Symptoms as evidenced by unintentional wt loss of 36.6#/26% <1 year; estimated energy intake meeting <50% of estimated nutritional needs x 4 months; severe muscle wasting/fat loss evident upon exam Status Active Problem Recommendation Dietitian Recommendations/Changes Regular diet, magic cup w/ meals for additional calories/ protein if consumed. Will add 120mL ensure enlive 4x/day. Recommend close monitoring of electrolytes given risk for refeeding syndrome. Lab / Micro Data Result Diagrams: 01/19/21 05:12 01/19/21 05:12 Labs: Laboratory Results - last 24 hr 01/19/21 05:12: WBC 7.6, RBC 2.86 L, Hgb 10.2 L, Hct 30.3 L, MCV 105.9 H, MCH 35.7 H, MCHC 33.7, RDW Std Deviation 54.0 H, RDW Coeff of Serena 14.0, Plt Count 224, MPV 10.6, Immature Gran % (Auto) 1.800 H, Neut % (Auto) 69.1, Lymph % (Auto) 16.2 L, [place] % (Auto) 8.2, Eos % (Auto) 4.3, Baso % (Auto) 0.4, Absolute Neuts (auto) 5.2, Absolute Lymphs (auto) 1.23, Nucleated RBC % 0 01/19/21 05:12: Sodium 145, Potassium 3.2 L, Chloride 122 H, Carbon Dioxide 15.0 L, BUN 22 H, Creatinine 0.72, Estim Creat Clear Calc 76.68, Est GFR (MDRD) Af Amer 142, Est GFR (MDRD) Non-Af 117, BUN/Creatinine Ratio 30.8 H, Glucose 98, Calcium 7.8 L, Phosphorus 1.5 L, Albumin 1.9 L Micro: Microbiology 01/16/21 23:40 Urine Catheter - Catheter Urine Culture - Final Culture exhibits no growth. Physical Exam Const alert, oriented x3 and no apparent distress Constitutional Narrative: very frail General Appearance: disheveled Exam Limitations: no limitations and altered mental status Nutritional Appearance: cachectic HEENT normocephalic, head/scalp atraumatic and moist oral mucous membranes Head and Scalp: normocephalic Eyes PERRL, EOMs intact bilaterally, conjunctivae normal and no scleral icterus Neck no lymphadenopathy, supple and no JVD General: trachea midline Resp normal respiratory effort, normal air movement, no retractions, no use of accessory muscles and clear to auscultation bilaterally Effort and Inspection: able to speak in complete sentences Cardio regular rate, regular rhythm, S1 normal heart sound, S2 normal heart sound, no murmurs and peripheral pulses 2+ throughout GI normal to inspection, nondistended, normoactive bowel sounds, soft to palpation, non-tender and non-distended Extremity normal to inspection, full ROM, normal capillary refill and no clubbing, cyanosis or edema General Extremity: no tenderness to palpation of joints or extremities Peripheral Pulses: Yes pulses 2+ throughout Skin no rashes or lesions noted General Skin Exam: no breakdown and turgor normal Lesions: no lesions Rashes: no rashes Neuro oriented x3, CN's II-XII intact bilaterally, moves all extremities, no focal motor deficits and no sensory deficits noted Sensorium / Orientation: awake and alert Speech: speech normal Motor Exam: general weakness Psych affect normal Attitude: uncooperative Activity / Motor Behavior: restless Thought Process: disorganized and confused Assessment & Plan Assessment/Plan (1) Acute kidney injury: (2) Urinary tract infection: QUALIFIERS: Urinary tract infection type: site unspecified Hematuria presence: without hematuria Qualified Code(s): N39.0 - Urinary tract infection, site not specified PLAN: #UTI * urine cultures show no growth so far * blood cultures pending * on IV ceftriaxone * wll switch to oral cefdinir * #TYREE * resolved. Cr down to 0.72 from >7 on admission. * #Non anion gap metabolic acidosis * bicarb is still 15 * will start on oral sodium bicarb tablets to help with non anion gap metabolic acidosis * #Hypertension: resume carvedilol; continue holding lisinopril and spironolactone. #History of seizures * on keppra * #history of glioblastoma multiforme * s/p resection with chemoradiation * follow up with oncology on outpatient basis * #Severe protein calorie malnutrition * BMI is 16. * nutrition on board #History of alcohol dependence * not in withdrawal now. Will monitor * DVT prohylaxis: lovenox Code status: full code Disposition: Patient may benefit from placement as he is still incredibly weak. Am uncomfortable with discharging patient home but he states he thinks he will do well at home is a significant advised her to take care of him. Will wait for case management to discuss with him about options for fdc to see if that will change his mind. Charges/Coding Visit Charges Inpatient E&M: 02637 Subs Hosp L2
--- NOTE | 2021-01-19 15:26 | NURSING ---
pts girlfriend here and pt more aggitated while here and standing up randomly from chair setting off alarm. pt thinking is going home when family leaves and does not remember anything about why still has to stay. pt told that would make family leave if wont behave. attempted to have pt go back to bed but refusing. attmepted to re explain why was here and that needed to correct levels before could go home and stated, thats fucked up
--- NOTE | 2021-01-19 15:37 | NURSING ---
girlfriend leaving d/t pt behavior escalating. texted for nicotine patch and prn sedative maybe. pt out in [place] with staff but ushered back in room.
[2021-01-19] MEDS: 0.9% Saline Lock 10 ML Syringe IV (18:12)
[2021-01-19] MEDS: LORazepam 2 MG/ML Syringe 1 MG IV (18:12)
[2021-01-19] MEDS: Ceftriaxone 1 GM/50 ML BAG IV (23:11)
[2021-01-20] VITALS (10 sets, daily range): BP systolic 111–165; BP diastolic 72–92; PULSE 58–79; RESP 18; TEMP 36.2–36.9; O2SAT 96–100
--- NOTE | 2021-01-20 01:22 | NURSING ---
Pt IV in rt Ac has been leaking but not painful or infiltrated. Several nurses have made attempts to start new IV with no luck. Continued to run all meds with leak in it and now pt is saline locked.
[2021-01-20 07:24] LABS: Absolute Lymphocyte Count 1.52 X10^3/uL (0.83-4.51); Absolute Neutrophil Count 4.7 X10^3/uL (2.0-7.7); Basophil# 0.07 X10^3/uL; Basophil% 0.9 % (0-1); Eosinophil# 0.33 X10^3/uL; Eosinophils% 4.4 % (0-5); Hematocrit 32.7 % (40-54); Hemoglobin 10.9 g/dL (13.0-16.5); Lymphocyte # 1.52 X10^3/ul (0.83-4.51); Lymphocyte % 20.3 % (19-41); Mean Corp Hgb Conc 33.3 g/dL (32-36); Mean Corpuscular Hgb 35.3 pg (27.0-32.0); Mean Corpuscular Volume 105.8 fL (80-94); Mean Platelet Vol. 9.9 fl (6.2-12.0); Monocyte# 0.69 X10^3/uL; Monocyte% 9.2 % (0-10); NRBC Flagged by Analyzer 0 % (0-5); Neutrophil # 4.66 X10^3/uL (2.7-7.7); Neutrophil % 62.1 % (47-70); Platelet Count 235 K/mm3 (150-450); RBC Distribution Width CV 13.8 % (11.6-14.6); RBC Distribution Width SD 53.1 fl (35.1-43.9); Red Blood Count 3.09 M/mm3 (4.6-6.2); White Blood Count 7.5 K/mm3 (4.4-11.0)
[2021-01-20 07:42] LABS: Albumin, Serum 2.2 g/dL (3.2-5.0); BUN 10 mg/dL (7-18); BUN/Creat Ratio 19.9 RATIO (10-20); Calcium,Total 8.1 mg/dL (8.5-10.1); Chloride 122 mmol/L (98-107); EST Glomerular Filtration Rate 176 mL/min (>60); Est Glom Filt Rate - Afr Amer 213 mL/min (>60); Estimated Creatinine Clearance 110.83 ml/min; Glucose 86 mg/dL (74-106); Magnesium 1.7 mg/dL (1.6-2.6); Phosphorus 3.1 mg/dL (2.5-4.9); Potassium 3.8 mmol/L (3.5-5.1); Sodium Level 143 mmol/L (136-145)
[2021-01-20] MEDS: Folic Acid 1 MG Tablet PO (08:42)
[2021-01-20] MEDS: Multivitamins,Ther W-Minerals Tablet 1 TABLET PO (08:42)
[2021-01-20] MEDS: Calcium Carb/Vitamin D 1 TABLET Tablet PO ×3 (08:42→18:21)
--- NOTE | 2021-01-20 09:22 | PCM.PN.REN ---
Subjective Subjective No acute complaints No nausea No vomiting Objective Data Objective Data Vital Signs: Vital Signs Temp Pulse Resp BP Pulse Ox 97.1 F L 68 18 111/72 96 01/20/21 09:08 01/20/21 09:08 01/20/21 09:08 01/20/21 09:08 01/20/21 09:08 Oxygen Delivery Method Nasal Cannula Weight: 53.2 kg Body Mass Index (BMI) 16.2 Intake & Output: Intake and Output for Last 24 Hours 01/18/21 01/19/21 01/20/21 23:59 23:59 23:59 Intake Total 3203.75 / 3203.75 1687.5 / 1687.5 217.5 / 217.5 Output Total 1525 / 1525 125 / 125 Balance 1678.75 / 1678.75 1687.5 / 1562.5 92.5 / 92.5 Medical Nutrition Assessment Dietitian: Nutrition Therapy Diagnosis Start: 01/17/21 10:57 Freq: Status: Active Protocol: Document 01/18/21 10:24 AG (Rec: 01/18/21 10:24 AG [id number]) Nutrition Malnutrition Evidence of Malnutrition Exists Yes Malnutrition (severe): Chronic Evidenced By Suboptimal Energy Intake ( Severe),Weight Loss (Severe), Physical Changes (Severe) Clinical Problem Chronic Disease or Condition Related Malnutrition Etiology chronic, severe malnutrition r /t inadequate energy intake d/ t decreased appetite, poor dentition w/ increased nutrient needs d/t glioblastoma Signs/Symptoms as evidenced by unintentional wt loss of 36.6#/26% <1 year; estimated energy intake meeting <50% of estimated nutritional needs x 4 months; severe muscle wasting/fat loss evident upon exam Status Active Problem Recommendation Dietitian Recommendations/Changes Regular diet, magic cup w/ meals for additional calories/ protein if consumed. Will add 120mL ensure enlive 4x/day. Recommend close monitoring of electrolytes given risk for refeeding syndrome. Lab / Micro Data Result Diagrams: 01/20/21 07:10 01/20/21 07:10 Labs: Laboratory Results - last 24 hr 01/20/21 07:10: WBC 7.5, RBC 3.09 L, Hgb 10.9 L, Hct 32.7 L, MCV 105.8 H, MCH 35.3 H, MCHC 33.3, RDW Std Deviation 53.1 H, RDW Coeff of Serena 13.8, Plt Count 235, MPV 9.9, Immature Gran % (Auto) 3.100 H, Neut % (Auto) 62.1, Lymph % (Auto) 20.3, [place] % (Auto) 9.2, Eos % (Auto) 4.4, Baso % (Auto) 0.9, Absolute Neuts (auto) 4.7, Absolute Lymphs (auto) 1.52, Nucleated RBC % 0 01/20/21 07:10: Sodium 143, Potassium 3.8, Chloride 122 H, Carbon Dioxide 18.0 L, BUN 10, Creatinine 0.50 L, Estim Creat Clear Calc 110.83, Est GFR (MDRD) Af Amer 213, Est GFR (MDRD) Non-Af 176, BUN/Creatinine Ratio 19.9, Glucose 86, Calcium 8.1 L, Phosphorus 3.1, Magnesium 1.7, Albumin 2.2 L Micro: Microbiology 01/17/21 19:35 Blood Culture (Wb) - Right Wrist Blood Culture - Preliminary No growth in 48 hours. 01/16/21 23:40 Urine Catheter - Catheter Urine Culture - Final Culture exhibits no growth. Physical Exam Narrative General: NAD. HEENT: Normocephalic, atraumatic. Mucous membrane dry. Neck: Supple no JVD. Lungs: Clear to auscultation bilaterally. Abdomen: Normal bowel sounds, soft, nontender, no guarding or rebound. Extremity: No lower extremity edema. No clubbing or cyanosis. Assessment & Plan Assessment/Plan (1) Acute kidney injury: PLAN: The patient has no prior history of chronic kidney disease. Serum creatinine was 0.8 mg/dL on 01/06/2021. TYREE is secondary to prerenal azotemia which has resolved. The patient was also taking lisinopril and spironolactone prior to admission which may have exacerbated hypotension and prerenal TYREE. Low suspicion for other causes of TYREE at this point. Renal function has returned to normal with IV fluid. IV stopped. Encourage oral intake. There is no need for kidney replacement therapy. Ok to start home lisinopril and aldactone. Recheck renal function panel again tomorrow morning. Current medications are reviewed and are appropriately dosed for his estimated creatinine clearance. (2) Hypernatremia: PLAN: resolved.. Prior hyponatremia was likely due to relative dehydration related to GI fluid loss. The patient was treated with D5W 01/18 with improvement in serum sodium. I encouraged the patient to drink when he is thirsty. (3) Hypokalemia: PLAN: Suspect that hypokalemia is due to GI loss. resolved with replacement .mg is normal . (4) Hypophosphatemia: PLAN: Hypophosphatemia may be due to refeeding. The patient is quite cachectic and he did receive D5W infusion . replaced. P is normal todat (5) Metabolic acidosis: PLAN: The patient has non-anion gap metabolic acidosis even after accounting for hypoalbuminemia. Acidosis is likely due to TYREE and diarrhea. Serum bicarbonate level =better todat. Recheck serum bicarbonate level again tomorrow. Hold off on additional bicarbonate supplementation since renal function is improving and the patient is hypokalemic. (6) Hypotension: PLAN: Improved. Hypotension was likely due to volume depletion. The patient is also being treated for possible infection until more data becomes available. Cultures are negative so far. can resume lisinopril and spironolactone (7) Glioblastoma multiforme of temporal lobe: PLAN: The patient was receiving radiation therapy prior to admission.
[2021-01-20] MEDS: Menthol/Lanolin/Calamine/Znox 113 GM Tube 1 APPLIC TOPICAL ×2 (10:21→21:33)
[2021-01-20] MEDS: Aspirin E.C. 81 MG Tablet PO (10:22)
[2021-01-20] MEDS: Heparin Injection (Vial) 5,000 UNIT/ML VIAL 5000 UNIT SC ×2 (10:23→21:34)
[2021-01-20] MEDS: 0.9% Saline Lock 10 ML Syringe IV ×2 (11:11→11:40)
--- NOTE | 2021-01-20 15:59 | PN.HOSP_ITS ---
Subjective Subjective Patient seen and examined. He had no complaints. REview of systems otherwise negative. He has remained hemodynamically stable. Objective Data Objective Data Vital Signs: Vital Signs Temp Pulse Resp BP Pulse Ox 97.1 F L 79 18 111/72 96 01/20/21 09:08 01/20/21 11:59 01/20/21 09:08 01/20/21 09:08 01/20/21 09:08 Oxygen Delivery Method Room Air Weight: 117 lb 4.575 oz Body Mass Index (BMI) 16.2 Intake & Output: Intake and Output for Last 24 Hours 01/18/21 01/19/21 01/20/21 23:59 23:59 23:59 Intake Total 3203.75 / 3203.75 1687.5 / 1687.5 435.0 / 435.0 Output Total 1525 / 1525 125 / 125 Balance 1678.75 / 1678.75 1687.5 / 1562.5 310.0 / 310.0 Medical Nutrition Assessment Dietitian: Malnutrition Criteria Met Start: 01/17/21 10:5 7 Freq: Status: Active Protocol: Document 01/20/21 11:05 RMA (Rec: 01/20/21 11:06 RMA [id number]) Nutrition Malnutrition Evidence of Malnutrition Exists Yes Malnutrition (severe): Chronic Evidenced By Suboptimal Energy Intake ( Severe),Weight Loss (Severe), Physical Changes (Severe) Clinical Problem Chronic Disease or Condition Related Malnutrition Etiology chronic, severe malnutrition r /t inadequate energy intake d/ t decreased appetite, poor dentition w/ increased nutrient needs d/t glioblastoma Signs/Symptoms as evidenced by unintentional wt loss of 36.6#/26% <1 year; estimated energy intake meeting <50% of estimated nutritional needs x 4 months; severe muscle wasting/fat loss evident upon exam Status Active Problem Recommendation Dietitian Recommendations/Changes Continue Regular diet and magic cup w/ meals for additional calories/protein if consumed. Continue 120mL ensure enlive 4x/day with medpass. Recommend close monitoring of electrolytes given risk for refeeding syndrome. Consider TF support to prevent further pro/energy depletion especially since intake is not much improved and pt continues to refuse oral nutrition supplements/meals. Lab / Micro Data Result Diagrams: 01/20/21 07:10 01/20/21 07:10 Labs: Laboratory Results - last 24 hr 01/20/21 07:10: WBC 7.5, RBC 3.09 L, Hgb 10.9 L, Hct 32.7 L, MCV 105.8 H, MCH 35.3 H, MCHC 33.3, RDW Std Deviation 53.1 H, RDW Coeff of Serena 13.8, Plt Count 235, MPV 9.9, Immature Gran % (Auto) 3.100 H, Neut % (Auto) 62.1, Lymph % (Auto) 20.3, [place] % (Auto) 9.2, Eos % (Auto) 4.4, Baso % (Auto) 0.9, Absolute Neuts (auto) 4.7, Absolute Lymphs (auto) 1.52, Nucleated RBC % 0 01/20/21 07:10: Sodium 143, Potassium 3.8, Chloride 122 H, Carbon Dioxide 18.0 L , BUN 10, Creatinine 0.50 L, Estim Creat Clear Calc 110.83, Est GFR (MDRD) Af Amer 213, Est GFR (MDRD) Non-Af 176, BUN/Creatinine Ratio 19.9, Glucose 86, Calcium 8.1 L, Phosphorus 3.1, Magnesium 1.7, Albumin 2.2 L Micro: Microbiology 01/17/21 19:35 Blood Culture (Wb) - Right Wrist Blood Culture - Preliminary No growth in 48 hours. 01/16/21 23:40 Urine Catheter - Catheter Urine Culture - Final Culture exhibits no growth. Physical Exam Const alert, oriented x3 and no apparent distress Constitutional Narrative: very frail General Appearance: disheveled Exam Limitations: no limitations and altered mental status Nutritional Appearance: cachectic HEENT normocephalic, head/scalp atraumatic and moist oral mucous membranes Eyes PERRL, EOMs intact bilaterally, conjunctivae normal and no scleral icterus Neck no lymphadenopathy, supple and no JVD General: trachea midline Resp normal respiratory effort, normal air movement, no retractions, no use of accessory muscles and clear to auscultation bilaterally Effort and Inspection: able to speak in complete sentences Cardio regular rate, regular rhythm, S1 normal heart sound, S2 normal heart sound, no murmurs and peripheral pulses 2+ throughout GI normal to inspection, nondistended, normoactive bowel sounds, soft to palpation, non-tender and non-distended Extremity normal to inspection, full ROM, normal capillary refill and no clubbing, cyanosis or edema General Extremity: no tenderness to palpation of joints or extremities Peripheral Pulses: Yes pulses 2+ throughout Skin no rashes or lesions noted General Skin Exam: no breakdown and turgor normal Lesions: no lesions Rashes: no rashes Neuro CN's II-XII intact bilaterally, moves all extremities, no focal motor deficits and no sensory deficits noted Sensorium / Orientation: awake and alert Speech: speech normal Motor Exam: general weakness Psych affect normal Attitude: uncooperative Activity / Motor Behavior: restless Thought Process: disorganized and confused Assessment & Plan Assessment/Plan (1) Acute kidney injury: (2) Urinary tract infection: QUALIFIERS: Urinary tract infection type: site unspecified Hematuria presence: without hematuria Qualified Code(s): N39.0 - Urinary tract infection, site not specified PLAN: #UTI * urine cultures show no growth so far * blood cultures also negative. * on oral cefdinir to complete a 5 day course. * * * #TYREE * resolved. * #Non anion gap metabolic acidosis * improving. bicarb now 18 * will trend. * * #Hypertension: on carvedilol. Will resume lisinopril and spironolactone #History of seizures * on keppra * #history of glioblastoma multiforme * s/p resection with chemoradiation * follow up with oncology on outpatient basis * #Severe protein calorie malnutrition * BMI is 16. * nutrition on board #History of alcohol dependence * not in withdrawal now. Will monitor * DVT prohylaxis: lovenox Code status: full code Disposition: awaiting placement Charges/Coding Visit Charges Inpatient E&M: 90417 Subs Hosp L2
--- NOTE | 2021-01-20 19:51 | NURSING ---
Pandemic charting in use
[2021-01-20] MEDS: Ceftriaxone 1 GM/50 ML BAG IV (21:34)
[2021-01-20] MEDS: LORazepam 2 MG/ML Syringe 1 MG IV (22:43)
[2021-01-21] VITALS (7 sets, daily range): BP systolic 123–150; BP diastolic 88–98; PULSE 63–85; RESP 16–18; TEMP 36.7–36.9; O2SAT 94–99
[2021-01-21 05:24] LABS: Absolute Lymphocyte Count 1.91 X10^3/uL (0.83-4.51); Absolute Neutrophil Count 5.2 X10^3/uL (2.0-7.7); Basophil# 0.06 X10^3/uL; Basophil% 0.7 % (0-1); Eosinophils% 3.6 % (0-5); Hemoglobin 10.3 g/dL (13.0-16.5); Lymphocyte # 1.91 X10^3/ul (0.83-4.51); Lymphocyte % 22.8 % (19-41); Mean Corp Hgb Conc 33.2 g/dL (32-36); Mean Corpuscular Hgb 34.8 pg (27.0-32.0); Mean Corpuscular Volume 104.7 fL (80-94); Mean Platelet Vol. 9.5 fl (6.2-12.0); Monocyte# 0.66 X10^3/uL; Monocyte% 7.9 % (0-10); NRBC Flagged by Analyzer 0 % (0-5); Neutrophil # 5.18 X10^3/uL (2.7-7.7); Neutrophil % 61.9 % (47-70); Platelet Count 217 K/mm3 (150-450); RBC Distribution Width CV 13.6 % (11.6-14.6); Red Blood Count 2.96 M/mm3 (4.6-6.2); White Blood Count 8.4 K/mm3 (4.4-11.0)
--- NOTE | 2021-01-21 09:30 | PCM.PN.REN ---
Subjective Subjective no SOB No nausea No vomiting Objective Data Objective Data Vital Signs: Vital Signs Temp Pulse Resp BP Pulse Ox 98.4 F 85 16 143/94 H 99 01/21/21 02:37 01/21/21 07:00 01/21/21 02:37 01/21/21 02:37 01/21/21 02:37 Oxygen Delivery Method Room Air Weight: 52.6 kg Body Mass Index (BMI) 16.2 Intake & Output: Intake and Output for Last 24 Hours 01/19/21 01/20/21 01/21/21 23:59 23:59 23:59 Intake Total 1687.5 / 1687.5 742.5 / 982.5 350 / 350 Output Total 125 / 200 75 / 75 Balance 1687.5 / 1562.5 617.5 / 782.5 275 / 275 Medical Nutrition Assessment Dietitian: Malnutrition Criteria Met Start: 01/17/21 10:57 Freq: Status: Active Protocol: Document 01/20/21 11:05 RMA (Rec: 01/20/21 11:06 RMA [id number]) Nutrition Malnutrition Evidence of Malnutrition Exists Yes Malnutrition (severe): Chronic Evidenced By Suboptimal Energy Intake ( Severe),Weight Loss (Severe), Physical Changes (Severe) Clinical Problem Chronic Disease or Condition Related Malnutrition Etiology chronic, severe malnutrition r /t inadequate energy intake d/ t decreased appetite, poor dentition w/ increased nutrient needs d/t glioblastoma Signs/Symptoms as evidenced by unintentional wt loss of 36.6#/26% <1 year; estimated energy intake meeting <50% of estimated nutritional needs x 4 months; severe muscle wasting/fat loss evident upon exam Status Active Problem Recommendation Dietitian Recommendations/Changes Continue Regular diet and magic cup w/ meals for additional calories/protein if consumed. Continue 120mL ensure enlive 4x/day with medpass. Recommend close monitoring of electrolytes given risk for refeeding syndrome. Consider TF support to prevent further pro/energy depletion especially since intake is not much improved and pt continues to refuse oral nutrition supplements/meals. Lab / Micro Data Result Diagrams: 01/21/21 05:18 01/20/21 07:10 Labs: Laboratory Results - last 24 hr 01/21/21 05:18: WBC 8.4, RBC 2.96 L, Hgb 10.3 L, Hct 31.0 L, MCV 104.7 H, MCH 34.8 H, MCHC 33.2, RDW Std Deviation 52.0 H, RDW Coeff of Serena 13.6, Plt Count 217, MPV 9.5, Immature Gran % (Auto) 3.100 H, Neut % (Auto) 61.9, Lymph % (Auto) 22.8, [place] % (Auto) 7.9, Eos % (Auto) 3.6, Baso % (Auto) 0.7, Absolute Neuts (auto) 5.2, Absolute Lymphs (auto) 1.91, Nucleated RBC % 0 Micro: Microbiology 01/17/21 19:35 Blood Culture (Wb) - Right Wrist Blood Culture - Preliminary No growth in 48 hours. 01/16/21 23:40 Urine Catheter - Catheter Urine Culture - Final Culture exhibits no growth. Physical Exam Narrative General: NAD. HEENT: Normocephalic, atraumatic. Mucous membrane dry. Neck: Supple no JVD. Lungs: Clear to auscultation bilaterally. Abdomen: Normal bowel sounds, soft, nontender, no guarding or rebound. Extremity: No lower extremity edema. No clubbing or cyanosis. Assessment & Plan Assessment/Plan (1) Acute kidney injury: PLAN: The patient has no prior history of chronic kidney disease. Serum creatinine was 0.8 mg/dL on 01/06/2021. TYREE is secondary to prerenal azotemia which has resolved. The patient was also taking lisinopril and spironolactone prior to admission which may have exacerbated hypotension and prerenal TYREE. Low suspicion for other causes of TYREE at this point. Renal function has returned to normal with IV fluid. IV stopped. Encourage oral intake. Ok to start home lisinopril and aldactone. No BMP today. Recheck renal function panel again tomorrow morning if remains inpatient. (2) Hypernatremia: PLAN: resolved.. Prior hyponatremia was likely due to relative dehydration related to GI fluid loss. The patient was treated with D5W 01/18 with improvement in serum sodium. I encouraged the patient to drink when he is thirsty. (3) Hypokalemia: PLAN: Suspect that hypokalemia is due to GI loss. resolved with replacement .mg is normal . (4) Hypophosphatemia: PLAN: Hypophosphatemia may be due to refeeding. The patient is quite cachectic and he did receive D5W infusion . replaced. P is normal as per 01/20 lab (5) Metabolic acidosis: PLAN: The patient has non-anion gap metabolic acidosis even after accounting for hypoalbuminemia. Acidosis is likely due to TYREE and diarrhea. Serum bicarbonate level improved to 18 as per 01/20 lab. Recheck serum bicarbonate level again tomorrow. Hold off on additional bicarbonate supplementation (6) Hypotension: PLAN: Improved. Hypotension was likely due to volume depletion. The patient is also being treated for possible infection until more data becomes available. Cultures are negative so far. can resume lisinopril and spironolactone (7) Glioblastoma multiforme of temporal lobe: PLAN: The patient was receiving radiation therapy prior to admission.
[2021-01-21] MEDS: Calcium Carb/Vitamin D 1 TABLET Tablet PO ×2 (09:31→13:44)
[2021-01-21] MEDS: Multivitamins,Ther W-Minerals Tablet 1 TABLET PO (09:31)
[2021-01-21] MEDS: Folic Acid 1 MG Tablet PO (09:31)
[2021-01-21] MEDS: Heparin Injection (Vial) 5,000 UNIT/ML VIAL 5000 UNIT SC (09:32)
[2021-01-21] MEDS: Aspirin E.C. 81 MG Tablet PO (09:32)
[2021-01-21] MEDS: Menthol/Lanolin/Calamine/Znox 113 GM Tube 1 APPLIC TOPICAL (09:32)
[2021-01-21] MEDS: 0.9% Saline Lock 10 ML Syringe IV (09:35)
--- NOTE | 2021-01-21 13:38 | PN.HOSP_ITS ---
Subjective Subjective Patient seen and examined. He had no complaints and felt well. Review of systems is otherwise negative. He is awaiting placement. Objective Data Objective Data Vital Signs: Vital Signs Temp Pulse Resp BP Pulse Ox 98.1 F 63 16 150/88 H 95 01/21/21 09:30 01/21/21 11:50 01/21/21 09:30 01/21/21 09:30 01/21/21 10:58 Oxygen Delivery Method Room Air Weight: 115 lb 15.41 oz Body Mass Index (BMI) 16.2 Intake & Output: Intake and Output for Last 24 Hours 01/19/21 01/20/21 01/21/21 23:59 23:59 23:59 Intake Total 1687.5 / 1687.5 742.5 / 982.5 791.5 / 791.5 Output Total 125 / 200 425 / 425 Balance 1687.5 / 1562.5 617.5 / 782.5 366.5 / 366.5 Medical Nutrition Assessment Dietitian: Malnutrition Criteria Met Start: 01/17/21 10:57 Freq: Status: Active Protocol: Document 01/20/21 11:05 RMA (Rec: 01/20/21 11:06 RMA [id number]) Nutrition Malnutrition Evidence of Malnutrition Exists Yes Malnutrition (severe): Chronic Evidenced By Suboptimal Energy Intake ( Severe),Weight Loss (Severe), Physical Changes (Severe) Clinical Problem Chronic Disease or Condition Related Malnutrition Etiology chronic, severe malnutrition r /t inadequate energy intake d/ t decreased appetite, poor dentition w/ increased nutrient needs d/t glioblastoma Signs/Symptoms as evidenced by unintentional wt loss of 36.6#/26% <1 year; estimated energy intake meeting <50% of estimated nutritional needs x 4 months; severe muscle wasting/fat loss evident upon exam Status Active Problem Recommendation Dietitian Recommendations/Changes Continue Regular diet and magic cup w/ meals for additional calories/protein if consumed. Continue 120mL ensure enlive 4x/day with medpass. Recommend close monitoring of electrolytes given risk for refeeding syndrome. Consider TF support to prevent further pro/energy depletion especially since intake is not much improved and pt continues to refuse oral nutrition supplements/meals. Lab / Micro Data Result Diagrams: 01/21/21 05:18 01/20/21 07:10 Labs: Laboratory Results - last 24 hr 01/21/21 05:18: WBC 8.4, RBC 2.96 L, Hgb 10.3 L, Hct 31.0 L, MCV 104.7 H, MCH 34.8 H, MCHC 33.2, RDW Std Deviation 52.0 H, RDW Coeff of Serena 13.6, Plt Count 217, MPV 9.5, Immature Gran % (Auto) 3.100 H, Neut % (Auto) 61.9, Lymph % (Auto) 22.8, [place] % (Auto) 7.9, Eos % (Auto) 3.6, Baso % (Auto) 0.7, Absolute Neuts (auto) 5.2, Absolute Lymphs (auto) 1.91, Nucleated RBC % 0 Micro: Microbiology 01/17/21 19:35 Blood Culture (Wb) - Right Wrist Blood Culture - Preliminary No growth in 48 hours. 01/16/21 23:40 Urine Catheter - Catheter Urine Culture - Final Culture exhibits no growth. Physical Exam Const alert, oriented x3 and no apparent distress Constitutional Narrative: very frail General Appearance: disheveled Exam Limitations: no limitations and altered mental status Nutritional Appearance: cachectic HEENT normocephalic, head/scalp atraumatic and moist oral mucous membranes Head and Scalp: normocephalic Eyes PERRL, EOMs intact bilaterally, conjunctivae normal and no scleral icterus Neck no lymphadenopathy, supple and no JVD General: trachea midline Resp normal respiratory effort, normal air movement, no retractions, no use of accessory muscles and clear to auscultation bilaterally Effort and Inspection: able to speak in complete sentences Cardio regular rate, regular rhythm, S1 normal heart sound, S2 normal heart sound, no murmurs and peripheral pulses 2+ throughout GI normal to inspection, nondistended, normoactive bowel sounds, soft to palpation, non-tender and non-distended Extremity normal to inspection, full ROM, normal capillary refill and no clubbing, cyanosis or edema General Extremity: no tenderness to palpation of joints or extremities Peripheral Pulses: Yes pulses 2+ throughout Skin no rashes or lesions noted General Skin Exam: no breakdown and turgor normal Lesions: no lesions Rashes: no rashes Neuro CN's II-XII intact bilaterally, moves all extremities, no focal motor deficits and no sensory deficits noted Sensorium / Orientation: awake and alert Speech: speech normal Motor Exam: general weakness Psych affect normal Attitude: uncooperative Activity / Motor Behavior: restless Thought Process: disorganized and confused Assessment & Plan Assessment/Plan (1) Acute kidney injury: (2) Urinary tract infection: QUALIFIERS: Urinary tract infection type: site unspecified Hematuria presence: without hematuria Qualified Code(s): N39.0 - Urinary tract infection, site not specified PLAN: #UTI * urine cultures show no growth so far * blood cultures also negative. * on oral cefdinir to complete a 3 day course to make 7 days of antibiotics in total. * #Non anion gap metabolic acidosis * improving. bicarb now 18 * will trend. * * #Hypertension: on carvedilol, lisinopril and spironolactone. #History of seizures * on keppra * #history of glioblastoma multiforme * s/p resection with chemoradiation * follow up with oncology on outpatient basis * #Severe protein calorie malnutrition * BMI is 16. * nutrition on board #History of alcohol dependence * not in withdrawal now. Will monitor * DVT prohylaxis: lovenox Code status: full code Disposition: awaiting placement Charges/Coding Visit Charges Inpatient E&M: 37193 Subs Hosp L2
--- NOTE | 2021-01-21 13:40 | CASEMGMT ---
Attempted to reach [facility], sig other, x2 without success to discuss discharge plan. CM to follow. Laura RN CM
--- NOTE | 2021-01-21 13:47 | CASEMGMT ---
Addendum entered by Rosalina Kuhn 01/21/21 15:11: Call to [facility], and she states they do have a container of thickener they can sell to pt/sig other for $58.17 and they will just need to come get it from them at the kitchen. Sig other updated and they will have [employer] take pt/sig other past there at discharge. Sig other voices no further questions/concerns/needs. Laura NEFF CM Addendum entered by Rosalina Kuhn 01/21/21 14:28: Per [facility] in [place], chucks/depends may be covered depending on pt's medicaid and they request script be sent and they can then run it. Eufemia, sig bebo, is agreeable to this being sent to [facility] pharmacy. Laura NEFF CM Original Note: Per Rosaline NEFF, pt is only alert to self/place at this time. Call again to sig other and she answered. Therapy notes reviewed with her and she feels pt is back to his normal. Sig other declines need for any further therapy/resources for pt at home at this time. Eufemia is made aware that pt has been on pureed, nectar thick liquid diet and she asks about getting thickener at discharge. Eufemia states that she normally supervises pt's eating as well. Message left for dietary in regards to thickener. Eufemia also asks about getting chucks/depends and message left with [facility] pharmacy in regards to same. CM to follow. Laura NEFF CM
--- NOTE | 2021-01-21 15:35 | PCM.DC.SUM ---
Providers Date of Admission: 01/16/21 Primary Care Physician: Dr. Jerod Oneil MD Consultations 01/16/21 21:54 Consult: Nephrology Routine Consulting Provider: Pantera Cavazos Reason for Consult: TYREE EMERGENT Consult: No Notified: Yes Date Notified: 01/16/21 Time Notified: 09:03 Method of Notification: Answering Service 01/16/21 22:55 Consult: Fha Underwriter / Pulmonary Medicine Routine Consulting Provider: Pulmonary Medicine [facility] Reason for Consult: TYREE, Hypotension, UTI EMERGENT Consult: No Notified: Yes Date Notified: 01/16/21 Time Notified: 22:55 Method of Notification: Page Reason For Visit: TYREE, UTI Diagnosis Discharge Diagnosis (1) Acute kidney injury: Status: Acute Code(s): N17.9 - Acute kidney failure, unspecified (2) Urinary tract infection: Status: Acute Code(s): N39.0 - Urinary tract infection, site not specified Qualifiers: Urinary tract infection type: site unspecified Hematuria presence: without hematuria Qualified Code(s): N39.0 - Urinary tract infection, site not specified Medications at Discharge Home Medications atorvastatin 80 mg tablet 80 mg PO DAILY 11/11/20 calcium carbonate 500 mg (1,250 mg)-vitamin D3 200 unit tablet 1 tab PO TID 11/11/20 carvedilol 12.5 mg tablet 12.5 mg PO Q12H 11/11/20 folic acid 1 mg tablet 1 mg PO DAILY 11/11/20 isosorbide mononitrate 30 mg tablet,extended release 24 hr 30 mg PO DAILY 11/11/20 multivitamin with minerals 1 cap PO DAILY 11/11/20 aspirin 81 mg tablet,delayed release 81 mg PO DAILY 11/14/20 lisinopril 40 mg tablet 40 mg PO DAILY tab 11/14/20 ondansetron 4 mg disintegrating tablet 4 mg PO Q8H PRN #30 tab 12/10/20 levetiracetam 750 mg PO BID 01/16/21 pantoprazole 40 mg PO BID 01/16/21 spironolactone 25 mg PO DAILY 01/16/21 cefdinir 300 mg PO BID #6 cap 01/21/21 Hospital Course Operations None Procedures None Summary of Care Provided Minutes Spent on Discharge: 50 Hospital Course: Patient is a 65-year-old male with a past medical history as outlined was admitted through the ED on January 16, 2021 for altered mental status. Patient was diagnosed with glioblastoma multiforme in October 2020 and is s/p right temporal craniectomy with resection of the tumor. Significant other stated patient had not been eating or drinking much for the past 5 days prior to admission and had not been attending his radiology appointments. On admission, he was afebrile and hemodynamically stable. WBC was elevated at 14,000 and creatinine was 1.86 with BUN of 18 and anion gap of 16 as well as bicarb of 18. Lactic acid was 2 and phosphorus was high at 7.2. AST and ALT were increased. Urinalysis was positive for leukocyte esterase along with rare urine bacteria and CT of the head showed no acute intracranial changes. Chest x-ray showed no acute cardiopulmonary process. He was admitted to be managed for acute kidney injury, hypotension and urinary tract infection. He was started on IV antimicrobials. He was hydrated with IV fluids. He was initially not responding to fluids so he was transferred to the ICU but subsequently stabilized without needing any vasopressors. Patient's mentation improved and he was transferred back to the regular floor. Of note, critical care was consulted. His creatinine gradually trended down and normalized to less than 1. PT OT was consulted and case management was consulted for discharge planning. Patient did remain a bit confused with intermittent lucidity during admission. Initial thought was that he could be placed in a group home but his significant other said that was his baseline and she could manage with him at home and preferred to take him home. Blood and urine cultures were negative. Patient was switched to p.o. cefdinir 300 mg twice daily. He remained stable and was discharged home with significant other on 01/21/2021 need to follow-up with his primary care doctor and oncologist in 1 to 2 weeks. Of note renal ultrasound done showed normal kidneys. Patient seen and examined prior to discharge. He had no complaints. Review of systems otherwise negative. Labs and vitals reviewed. Home medication reviewed and reconciled. Physical Exam Const alert, oriented x3 and no apparent distress Constitutional Narrative: very frail General Appearance: cooperative, comfortable and disheveled Orientation / Consciousness: awake, oriented to person, oriented to place and oriented to time Exam Limitations: no limitations Nutritional Appearance: cachectic HEENT normocephalic, head/scalp atraumatic, hearing grossly normal bilaterally and moist oral mucous membranes Eyes PERRL, EOMs intact bilaterally, conjunctivae normal and no scleral icterus Neck no lymphadenopathy, supple and no JVD General: trachea midline Resp normal respiratory effort, normal air movement, no retractions, no use of accessory muscles and clear to auscultation bilaterally Effort and Inspection: able to speak in complete sentences Cardio regular rate, regular rhythm, S1 normal heart sound, S2 normal heart sound, no murmurs and peripheral pulses 2+ throughout GI normal to inspection, nondistended, normoactive bowel sounds, soft to palpation, non-tender and non-distended Extremity normal to inspection, full ROM, normal capillary refill and no clubbing, cyanosis or edema General Extremity: no tenderness to palpation of joints or extremities Skin no rashes or lesions noted General Skin Exam: no breakdown and turgor normal Lesions: no lesions Rashes: no rashes Neuro oriented x3, CN's II-XII intact bilaterally, moves all extremities, no focal motor deficits and no sensory deficits noted Sensorium / Orientation: awake and alert Speech: speech normal Motor Exam: general weakness Psych affect normal Attitude: uncooperative Activity / Motor Behavior: restless Thought Process: disorganized and confused Medical Records Data Medical Nutrition Assessment Dietitian: Malnutrition Criteria Met Start: 01/17/21 10:57 Freq: Status: Active Protocol: Document 01/20/21 11:05 RMA (Rec: 01/20/21 11:06 RMA [id number]) Nutrition Malnutrition Evidence of Malnutrition Exists Yes Malnutrition (severe): Chronic Evidenced By Suboptimal Energy Intake ( Severe),Weight Loss (Severe), Physical Changes (Severe) Clinical Problem Chronic Disease or Condition Related Malnutrition Etiology chronic, severe malnutrition r /t inadequate energy intake d/ t decreased appetite, poor dentition w/ increased nutrient needs d/t glioblastoma Signs/Symptoms as evidenced by unintentional wt loss of 36.6#/26% <1 year; estimated energy intake meeting <50% of estimated nutritional needs x 4 months; severe muscle wasting/fat loss evident upon exam Status Active Problem Recommendation Dietitian Recommendations/Changes Continue Regular diet and magic cup w/ meals for additional calories/protein if consumed. Continue 120mL ensure enlive 4x/day with medpass. Recommend close monitoring of electrolytes given risk for refeeding syndrome. Consider TF support to prevent further pro/energy depletion especially since intake is not much improved and pt continues to refuse oral nutrition supplements/meals. Weight / BMI Weight Weight: 115 lb 15.41 oz Body Mass Index (BMI) 16.2 ABG / Lab / Microbiology Data Result Diagrams: 01/21/21 05:18 01/20/21 07:10 Laboratory: Laboratory Results - last 24 hr 01/21/21 05:18: WBC 8.4, RBC 2.96 L, Hgb 10.3 L, Hct 31.0 L, MCV 104.7 H, MCH 34.8 H, MCHC 33.2, RDW Std Deviation 52.0 H, RDW Coeff of Serena 13.6, Plt Count 217, MPV 9.5, Immature Gran % (Auto) 3.100 H, Neut % (Auto) 61.9, Lymph % (Auto) 22.8, [place] % (Auto) 7.9, Eos % (Auto) 3.6, Baso % (Auto) 0.7, Absolute Neuts (auto) 5.2, Absolute Lymphs (auto) 1.91, Nucleated RBC % 0 Microbiology: Microbiology 01/17/21 09:25 Blood Culture (Wb) - Right Wrist Blood Culture - Preliminary No growth in 48 hours. 01/17/21 19:35 Blood Culture (Wb) - Right Wrist Blood Culture - Preliminary No growth in 48 hours. 01/16/21 23:40 Urine Catheter - Catheter Urine Culture - Final Culture exhibits no growth. D/C Instructions Discharge Diet: Low fat / Low cholesterol Discharge Activity: Return to Normal Activity Weight Bearing Status: Weight bearing as tolerated Call your doctor if you observe: Fever of 101 or Higher, Shortness of breath, Dizziness and Swelling in the ankles Meaningful Use Info Meaningful Use Diagnoses (Choose all that apply): None applicable Discharge Plan Admission Admit Date/Time: 01/16/21 20:49 Primary Reason for Your Visit: TYREE, UTI Attending Provider: Denisa Flores Primary Care Provider: Jerod Oneil Consulting Providers: Alan Vera ; Kris Hunt ; Britany Ledesma NP ; Pantera Cavazos Instructions Patient Instructions: Acute Kidney Failure Dc, ED Bladder Infection, Male (Adult), ED Urinary Tract Infections in Men Discharge Orders/Prescriptions Prescriptions: New cefdinir 300 mg capsule 300 mg PO BID Qty: 6 RF: 0 Continued atorvastatin 80 mg tablet 80 mg PO DAILY RF: 0 carvedilol 12.5 mg tablet 12.5 mg PO Q12H RF: 0 calcium carbonate-vitamin D3 500 mg(1,250mg) -200 unit tablet 1 tab PO TID RF: 0 folic acid 1 mg tablet 1 mg PO DAILY RF: 0 isosorbide mononitrate 30 mg tablet extended release 24 hr 30 mg PO DAILY RF: 0 multivitamin with minerals Capsule 1 cap PO DAILY RF: 0 lisinopril 40 mg tablet 40 mg PO DAILY RF: 0 aspirin 81 mg tablet,delayed release (DR/EC) 81 mg PO DAILY RF: 0 spironolactone 25 mg tablet 25 mg PO DAILY RF: 0 pantoprazole 40 mg tablet,delayed release (DR/EC) 40 mg PO BID RF: 0 levetiracetam 750 mg tablet 750 mg PO BID RF: 0 ondansetron 4 mg tablet,disintegrating 4 mg PO Q8H PRN (Reason: nausea and vomiting) Qty: 30 RF: 2 Referrals / Follow Up: Jerod Oneil MD [Primary Care Provider] - Within 2 Weeks Disposition Disposition (needs filled in before D/C Order can be placed): Home, Self Care Charges/Coding Visit Charges Inpatient E&M: 52775 Disch Hosp
--- NOTE | 2021-01-22 16:23 | CASEMGMT ---
MARCIO DC F/u Call DC Date: 01/21/21 DC Diagnosis: TYREE, UTI DC Disposition: Home Lace/Strata: 17/09 Called patient cell phone, answered by significant other Eufemia. States patient is doing okay and confirmed picked up medication. Only question was regarding when patient can have Chemo- states s/w oncologist today and they will let patient know tomorrow. Denies any other issues, questions, or concerns with [facility], medication or f/u. Thanked them for choosing care with [facility] and phone conversation ended. MARCIO Roberts
== END 2021-01-21 16:18 | disposition home or self-care (01) | DRG 682 ==
LOC: ED 19:58 → PCU 20:51 → ICU 01-17 07:09 → PCU 01-19 01:14
PROVIDERS: Internal Medicine Critical Care Medicine; Internal Medicine Nephrology; Nurse Practitioner Family; Admitting Provider Internal Medicine; Emergency Provider Student in an Organized Health Care Education/Training Program; PCP Internal Medicine; Visit Provider Student in an Organized Health Care Education/Training Program
DX: N17.9 Acute kidney failure, unspecified (principal); E43 Unspecified severe protein-calorie malnutrition; N39.0 Urinary tract infection, site not specified; C71.2 Malignant neoplasm of temporal lobe; F11.20 Opioid dependence, uncomplicated; E87.2 Acidosis; Z68.1 Body mass index [BMI] 19.9 or less, adult; E86.0 Dehydration; I25.10 Atherosclerotic heart disease of native coronary artery without angina pectoris; B19.20 Unspecified viral hepatitis C without hepatic coma; D75.89 Other specified diseases of blood and blood-forming organs; E78.5 Hyperlipidemia, unspecified; F10.20 Alcohol dependence, uncomplicated; F12.90 Cannabis use, unspecified, uncomplicated; F14.90 Cocaine use, unspecified, uncomplicated; F17.210 Nicotine dependence, cigarettes, uncomplicated; I10 Essential (primary) hypertension; I73.9 Peripheral vascular disease, unspecified; Z80.7 Family history of other malignant neoplasms of lymphoid, hematopoietic and related tissues; Z82.49 Family history of ischemic heart disease and other diseases of the circulatory system; Z85.841 Personal history of malignant neoplasm of brain; Z86.73 Personal history of transient ischemic attack (TIA), and cerebral infarction without residual deficits; Z91.14 Patient's other noncompliance with medication regimen; Z91.19 Patient's noncompliance with other medical treatment and regimen; K21.9 Gastro-esophageal reflux disease without esophagitis; G40.909 Epilepsy, unspecified, not intractable, without status epilepticus
CPT/HCPCS: 36415; 70450; 71045; 76770; 77336; 77386; 80053; 80069; 80307; 81001; 82077; 82140; 82436; 82550; 82570; 83605; 83735; 84100; 84133; 84145; 84300; 84484; 85025; 87040; 87086; 92507; 92526; 92610; 93005; 97110; 97162; 97166; 97530; 97535; 97802; 97803; 99251; 99285; 99406; J7030; J7050; P9612; A4216; G0463